=== PATIENT | male | born 1945 | race Caucasian/White ===

== ENCOUNTER → 2023-06-02 13:56 | Outpatient (REF) | payer MEDICARE, OTHER, SELFPAY ==
[2023-06-02 14:34] LABS: % Basophils 0.7 % (0-2); % Eosinophils 0.4 % (0-6); % Immature Granulocytes 0.7 % (0-0.5); % Lymphocytes 25.8 % (20.5-51.1); % Monocytes 10.5 % (1.7-9.3); % Neutrophils 61.9 % (42.2-75.2); Absolute Lymphocytes 1.5 10^3/uL (1.2-3.4); Absolute Monocytes 0.6 10^3/uL (0.1-0.6); Absolute Neutrophils 3.5 10^3/uL (1.4-6.5); Hematocrit 38.7 % (39.0-52.0); Hemoglobin 13.3 g/dL (13.0-18.0); Mean Corp Hgb Conc. 34.4 g/dL (33.0-37.0); Mean Corpuscular Hgb 32.7 pg (27.0-31.0); Mean Corpuscular Volume 95.1 fL (80.0-94.0); Mean Platelet Volume 9.9 fL (7.4-10.4); Nucleated Red Blood Cells % 0 % (-); Platelet Count 148 10^3/uL (130-400); Red Blood Cell Count 4.07 10^6/uL (4.70-6.10); Red Cell Dist. Width 12.9 % (11.5-14.5); White Blood Cell Count 5.7 10^3/uL (4.8-10.8)
[2023-06-02 17:08] LABS: ALT (SGPT) 23 U/L (0-50); AST (SGOT) 24 U/L (17-59); Albumin 4.4 g/dl (3.5-5.0); Alkaline Phosphatase 86 U/L (38-126); Blood Urea Nitrogen 23 mg/dl (9-20); Calcium 11.2 mg/dl (8.4-10.2); Carbon Dioxide 26 mmol/L (22-30); Chloride 107 mmol/L (98-107); Glucose 212 mg/dl (70-99); Iron 86 ug/dl (49-181); Potassium 4.2 mmol/L (3.5-5.1); Sodium 141 mmol/L (135-145); Total Bilirubin 0.9 mg/dl (0.2-1.3); Total Protein 7.3 g/dl (6.3-8.2); eGFR 55.88
[2023-06-02 17:18] LABS: Percent Saturation 24 % (20-50); Total Iron Binding Capacity 350 ug/dl (261-462)
[2023-06-02 17:57] LABS: CEA 2.71 ng/ml
[2023-06-02 22:21] LABS: Folate 7.9 ng/ml (2.76-20); Vitamin B12 729 pg/ml (239-931)
== END ==
LOC: REG 13:56
PROVIDERS: ATTENDING PHYSICIAN Internal Medicine Hematology & Oncology; FAMILY PHYSICIAN Family Medicine
DX: C18.2 Malignant neoplasm of ascending colon (principal); D50.0 Iron deficiency anemia secondary to blood loss (chronic); D51.9 Vitamin B12 deficiency anemia, unspecified
CPT/HCPCS: 36415; 80053; 82378; 82607; 82728; 82746; 83540; 83550; 85025

== ENCOUNTER → 2023-06-03 14:21 | Outpatient (REF) | payer MEDICARE, OTHER, SELFPAY | LOC: RAD 14:21 | PROVIDERS: ATTENDING PHYSICIAN Internal Medicine Hematology & Oncology; FAMILY PHYSICIAN Family Medicine | DX: C18.2 Malignant neoplasm of ascending colon (principal); D50.0 Iron deficiency anemia secondary to blood loss (chronic) | CPT/HCPCS: 71260; 74177; Q9967 ==

== ENCOUNTER → 2023-07-31 12:23 | Outpatient (REF) | payer MEDICARE, OTHER, SELFPAY ==
[2023-07-31 13:32] LABS: ALT (SGPT) 26 U/L (0-50); AST (SGOT) 27 U/L (17-59); Albumin 4.5 g/dl (3.5-5.0); Alkaline Phosphatase 73 U/L (38-126); Blood Urea Nitrogen 28 mg/dl (9-20); Calcium 10.9 mg/dl (8.4-10.2); Carbon Dioxide 24 mmol/L (22-30); Chloride 107 mmol/L (98-107); Glucose 136 mg/dl (70-99); HDL Cholesterol 37 mg/dl; LDL Cholesterol, Calculated 44 mg/dl; Potassium 4.8 mmol/L (3.5-5.1); Sodium 141 mmol/L (135-145); Total Bilirubin 1.1 mg/dl (0.2-1.3); Total Cholesterol 116 mg/dl (50-199); Total Protein 7.5 g/dl (6.3-8.2); Triglyceride 177 mg/dl (10-149); Very Low Density Lipoprotein 35 mg/dl (0-30); eGFR 51.13
[2023-07-31 14:00] LABS: Glycohemoglobin (HgbA1c) 7.1 % (4.0-5.6)
[2023-07-31 14:23] LABS: Microalbumin, Random Urine 2.9 mg/dl (0.6-1.7); Microalbumin/creatinine Ratio 11.7 mg/g
[2023-07-31 14:44] LABS: Folate 8.9 ng/ml (2.76-20); Vitamin B12 578 pg/ml (239-931)
[2023-08-01 12:34] LABS: Intact PTH 42.4 pg/ml (13.6-85.8)
== END ==
LOC: REG 12:23
PROVIDERS: ATTENDING PHYSICIAN Family Medicine
DX: E11.9 Type 2 diabetes mellitus without complications (principal); R53.83 Other fatigue; E78.00 Pure hypercholesterolemia, unspecified; R73.9 Hyperglycemia, unspecified; E78.9 Disorder of lipoprotein metabolism, unspecified; I10 Essential (primary) hypertension; R94.5 Abnormal results of liver function studies; E83.52 Hypercalcemia; Z79.899 Other long term (current) drug therapy
CPT/HCPCS: 36415; 80053; 80061; 82043; 82570; 82607; 82746; 83036; 83970

== ENCOUNTER → 2023-12-11 12:22 | Outpatient (REF) | payer MEDICARE, OTHER, SELFPAY | LOC: REG 12:22 | PROVIDERS: ATTENDING PHYSICIAN Internal Medicine Hematology & Oncology; FAMILY PHYSICIAN Family Medicine | DX: C18.2 Malignant neoplasm of ascending colon (principal); D50.0 Iron deficiency anemia secondary to blood loss (chronic) | CPT/HCPCS: 36415; 82378 ==

== ENCOUNTER → 2023-12-15 14:24 | Outpatient (REF) | payer MEDICARE, OTHER, SELFPAY | LOC: HWRAD 14:24 | PROVIDERS: ATTENDING PHYSICIAN Internal Medicine Hematology & Oncology; FAMILY PHYSICIAN Family Medicine | DX: C18.2 Malignant neoplasm of ascending colon (principal); D50.0 Iron deficiency anemia secondary to blood loss (chronic) | CPT/HCPCS: 71260; 74177; Q9967 ==

== ENCOUNTER → 2023-12-26 13:52 | Outpatient (REF) | payer MEDICARE, OTHER, SELFPAY ==
[2023-12-26 15:19] LABS: Iron 116 ug/dl (49-181)
[2023-12-26 15:29] LABS: % Basophils 0.7 % (0-2); % Eosinophils 0.4 % (0-6); % Immature Granulocytes 0.4 % (0-0.5); % Lymphocytes 27.4 % (20.5-51.1); % Monocytes 9.3 % (1.7-9.3); % Neutrophils 61.8 % (42.2-75.2); Absolute Lymphocytes 1.5 10^3/uL (1.2-3.4); Absolute Monocytes 0.5 10^3/uL (0.1-0.6); Absolute Neutrophils 3.4 10^3/uL (1.4-6.5); Hematocrit 42.2 % (39.0-52.0); Hemoglobin 14.7 g/dL (13.0-18.0); Mean Corp Hgb Conc. 34.8 g/dL (33.0-37.0); Mean Corpuscular Volume 91.9 fL (80.0-94.0); Mean Platelet Volume 10.6 fL (7.4-10.4); Nucleated Red Blood Cells % 0 % (-); Percent Saturation 34 % (20-50); Platelet Count 129 10^3/uL (130-400); Red Blood Cell Count 4.59 10^6/uL (4.70-6.10); Red Cell Dist. Width 12.9 % (11.5-14.5); Total Iron Binding Capacity 339 ug/dl (261-462); White Blood Cell Count 5.5 10^3/uL (4.8-10.8)
[2023-12-26 15:55] LABS: Ferritin 72.7 ng/ml (17.9-464.0)
[2023-12-26 16:26] LABS: Folate 8.6 ng/ml (2.76-20); Vitamin B12 491 pg/ml (239-931)
== END ==
LOC: REG 13:52
PROVIDERS: ATTENDING PHYSICIAN Internal Medicine Hematology & Oncology; FAMILY PHYSICIAN Family Medicine
DX: C18.2 Malignant neoplasm of ascending colon (principal); D50.0 Iron deficiency anemia secondary to blood loss (chronic); D51.9 Vitamin B12 deficiency anemia, unspecified
CPT/HCPCS: 36415; 82607; 82728; 82746; 83540; 83550; 85025

== ENCOUNTER → 2024-01-07 06:23 | Day surgery (SDC) | payer MEDICARE, OTHER, SELFPAY ==
[2024-01-07 07:38] LABS: Glucose - Point of Care 250 mg/dl (70-99)
== END ==
LOC: GI 06:23
PROVIDERS: ATTENDING PHYSICIAN Surgery
PROC: 0DBL8ZX Excision of Transverse Colon, Via Natural or Artificial Opening Endoscopic, Diagnostic (ICD-10-PCS; 2024-01-07)
PROC: 0DBN8ZX Excision of Sigmoid Colon, Via Natural or Artificial Opening Endoscopic, Diagnostic (ICD-10-PCS; 2024-01-07)
DX: Z12.11 Encounter for screening for malignant neoplasm of colon (principal); Z85.038 Personal history of other malignant neoplasm of large intestine; D12.7 Benign neoplasm of rectosigmoid junction; K57.30 Diverticulosis of large intestine without perforation or abscess without bleeding; D12.3 Benign neoplasm of transverse colon; K64.9 Unspecified hemorrhoids
CPT/HCPCS: 45380; 88305; 82962

== ENCOUNTER 2024-04-25 17:23 | Inpatient (IN) | payer MEDICARE, OTHER, SELFPAY ==
--- NOTE | 2024-04-25 15:21 | CON.NEURO ---
Consultation
Order
Date of Consultation: 04/25/24
Requesting Provider: Laura Payne.
Reason for Consult: Stroke Alert
Prehospital notification at 15:07
Neurology Consultation Note.
HPI: This is an 78-year-old man who presented to [facility] on 04/25/2024 with encephalopathy.
According to patient's daughter Mr. Duran was found sitting on the floor, confused around 2:50 PM today.
According to EMS the patient had transient facial weakness and was able to follow requests.
According to patient's daughter the patient seems to be lethargic since yesterday and cancel his plans to meet with friend August for today. As per his friend he sounded 'drugged around 11:00 in the morning today
VS by EMS-HR 38-43 bpm, SBP in 170s mmHg. The patient's blood glucose was 120 mg/dL.
ER VS: 164/78, 46, T-pending.
PDMP:none
Labs: Glucose�166, normal sodium, creatinine 1.3, WBCs�12.7, MCV�96.2.
CT head wo contrast
CTA head/neck�severe bilateral ICA stenosis, right vert occlusion
PMH: Colon cancer, CAD, ICM, HTN, DLP, DM, noncompliance, nephrolithiasis,
PSH: Colectomy, PTCI, appendectomy,
SH: Lives with daughter, non-smoker
FH: Noncontributory
All: Iodine
ROS: Positive for chronic diarrhea, unwitnessed fall
General: Well developed. In no acute distress.
Cardio: Regular rate . Extremities are without cyanosis or edema.
Right dorsal hand and left forehead abrasion.
Neuro:
Mental Status: Alert, attends right more than left. Does not follow requests. Nonverbal.
Cranial Nerves: Orthophoric primary gaze. Does not cross midline to the left. No blink to threat bilaterally. No clear facial weakness.
Motor: Moves upper and lower extremities antigravity (left arm greater than right) lower EXTR symmetrically.
Reflexes: positive for bilateral grasp
Sensory: Grimaces to noxious stimuli
Coordination: No tremors myoclonic
Gait: deferred
Assessment and Plan:
I. Acute encephalopathy. Differential diagnosis includes vascular versus ictal/postictal vs infectious versus metabolic. Not a candidate for IV TNK due to unclear timing of presenting symptoms onset.
II. Severe bilateral ICA stenosis
III. Status post unwitnessed fall
IV. Mediastinal lymphadenopathy.
-Avoid cerebral hypoperfusion in view of bilateral ICA stenosis
-Atropine as needed
-CT C spine
-Keppra load
-Telemetry monitoring
-please check CK, UA, urine culture, urine tox, TFTs
-Brain MRI without darrel
-Routine EEG
-Cardiology consult
-Case was discussed with patient's daughter
I personally reviewed all radiology and labs along with past medical records pertinent to current medical problems. Total time spent in patient care is 60 minutes.
Thank you for allowing us to participate in the care of this patient. We will continue to follow. Please do not hesitate to contact us with any questions or concerns.
Subjective/Objective
Subjective Data
Date of Service: April 25, 2024
Objective Data
Patient Allergies
shellfish derived Allergy (Verified 04/25/24 15:20)
Itching
shrimp Allergy (Verified 04/25/24 15:20)
Itching
Medications
-
Home Medications
�Medication �Instructions �Recorded
atorvastatin 40 mg tablet 40 mg PO DAILY High cholesterol 07/12/20
metformin 500 mg tablet 1,000 mg PO BID@0800,1700 Diabetes 07/12/20
aspirin 81 mg tablet,delayed 81 mg PO DAILY Blood clot 12/17/21
release prevention/tx
cholecalciferol (vitamin D3) 25 25 mcg PO DAILY Supplement 12/17/21
mcg (1,000 unit) tablet
lisinopril 20 mg tablet 20 mg PO DAILY #90 tabs 12/24/21
sitagliptin phosphate 25 mg tablet 25 mg PO DAILY 01/22/22
(Januvia)
cephalexin 500 mg capsule 500 mg PO BID #20 caps 03/15/22
docusate sodium 100 mg capsule 100 mg PO DAILY #30 caps 03/15/22
(Colace)
Home Medications
-
Home Medications
atorvastatin 40 mg tablet 40 mg PO DAILY High cholesterol 07/12/20
metformin 500 mg tablet 1,000 mg PO BID@0800,1700 Diabetes 07/12/20
aspirin 81 mg tablet,delayed release 81 mg PO DAILY Blood clot prevention/tx 12/17/21
cholecalciferol (vitamin D3) 25 mcg (1,000 unit) tablet 25 mcg PO DAILY Supplement 12/17/21
lisinopril 20 mg tablet 20 mg PO DAILY #90 tabs 12/24/21
docusate sodium 100 mg capsule (Colace) 100 mg PO DAILY #30 caps 03/15/22
empagliflozin 10 mg tablet (Jardiance) 10 mg PO DAILY 04/25/24
--- NOTE | 2024-04-25 15:22 | PHANOTE ---
med rec note- family does not patient meds with them, patient does not have ecw or pcp with ecw
[2024-04-25 15:35] VITALS: BMI 23.9
--- NOTE | 2024-04-25 15:36 | EDRN ---
Patient brought in by EMS as prehospital stroke alert. Directly to CT via EMS stretcher for head and angio. Neurologist at the bedside to evaluate the patient. Unable to follow commands. Patient trying to get off the CT table stating 'help me' while
trying to lift head off table.
[2024-04-25 15:45] VITALS: BP 164/78
[2024-04-25 15:53] LABS: % Basophils 0.5 % (0-2); % Eosinophils 0.4 % (0-6); % Immature Granulocytes 0.3 % (0-0.5); % Lymphocytes 32.3 % (20.5-51.1); % Neutrophils 56.5 % (42.2-75.2); Absolute Basophils 0.1 10^3/uL (0-0.2); Absolute Eosinophils 0.1 10^3/uL (0-0.7); Absolute Lymphocytes 4.1 10^3/uL (1.2-3.4); Absolute Monocytes 1.3 10^3/uL (0.1-0.6); Absolute Neutrophils 7.2 10^3/uL (1.4-6.5); Hemoglobin 14.1 g/dL (13.0-18.0); Mean Corp Hgb Conc. 34.4 g/dL (33.0-37.0); Mean Corpuscular Hgb 33.1 pg (27.0-31.0); Mean Corpuscular Volume 96.2 fL (80.0-94.0); Mean Platelet Volume 9.7 fL (7.4-10.4); Nucleated Red Blood Cells % 0 % (-); Platelet Count 139 10^3/uL (130-400); Red Blood Cell Count 4.26 10^6/uL (4.70-6.10); Red Cell Dist. Width 13.8 % (11.5-14.5); White Blood Cell Count 12.7 10^3/uL (4.8-10.8)
[2024-04-25 16:02] VITALS: BP 154/70
[2024-04-25 16:04] LABS: Blood Urea Nitrogen 19 mg/dl (9-20); Calcium 9.9 mg/dl (8.4-10.2); Carbon Dioxide 20 mmol/L (22-30); Chloride 107 mmol/L (98-107); Estimated Creatinine Clearance 48 ml/min; Glucose 166 mg/dl (70-99); Potassium 3.5 mmol/L (3.5-5.1); Sodium 139 mmol/L (135-145); eGFR 55.53
--- NOTE | 2024-04-25 16:05 | EDRN ---
Family at bedside unsure when his initial symptoms started. His Apple Watch notified him several times today about a low or irregular heart rate since about 0930 this morning. Also going through his communications he spoke with a family member about
the same time and they thought he sounded a little 'groggy.'
Dr. Robertson updated the family that the patient will be going to the petroleum laboratory technician.
[2024-04-25 16:08] LABS: INR 1.25
[2024-04-25 16:09] LABS: APTT 43.7 Sec (23.4-35.0)
[2024-04-25 16:16] LABS: Troponin I 0.018 ng/ml
[2024-04-25] MEDS: KEPPRA 1000 MG IV (16:29)
[2024-04-25 16:30] VITALS: BP 127/90
--- NOTE | 2024-04-25 16:33 | HPS.HSE ---
Family Physician
-
Family Physician: Onur Penaloza
Chief Complaint
-
change in mental status
History of Present Illness
Patient is [id number] male with past medical history significant for essential hypertension, hyperlipidemia, CAD, DM II, hx CO and hx colon cancer with resection who presented to [facility] ED for evaluation of change in mental status.
Patient daughter present and assisted with HPI. Patient was found sitting on the floor with facial drooping and slurring of words around 1445 this afternoon. She states she is unsure when last time he was at baseline. She noted last night his door
was ajar which is not generally like him, but she did not look to see if anything appeared off. She states this morning he called to cancel plans with his friend. The friend notified her that she felt patient was lethargic and was slurring words
like he was drunk when they spoke around 1100. Daughter states she had a few word interaction at approximately 1300 but did not notice anything off but does state it was super brief and not sure she would have noticed any change. EMS called and
transported patient where he was found to be in complete heart block. Daughter reports there has been no recent illness or symptoms, she reports he has had episodes of diarrhea but not abnormal post his colon resection in 2021.
Medical History
Past Medical History
Past Medical History: Reports Other
Additional Past Medical History:
essential hypertension
hyperlipidemia
CAD
DM II
hx CO
hx colon cancer
Past Surgical History: Reports Other
Additional Past Surgical History:
bowel resection
cataract extraction
melanoma of skin
cardiac stent
appendectomy
Social History
Tobacco: Non-smoker
Alcohol: None
Drug: None
Living: With Family
Employment: Retired
Family History
Family History: Not pertinent
Allergies / Home Medications
Allergies reflects when Allergies were last updated in [facility].
Home Medications with original date entered in [facility]
Allergy/Medication List:
Allergies
Allergy/AdvReac Type Severity Reaction Status Date / Time
shellfish derived Allergy Itching Verified 04/25/24 15:20
shrimp Allergy Itching Verified 04/25/24 15:20
Home Medications
atorvastatin 40 mg tablet 40 mg PO DAILY High cholesterol 07/12/20
metformin 500 mg tablet 1,000 mg PO BID@0800,1700 Diabetes 07/12/20
aspirin 81 mg tablet,delayed release 81 mg PO DAILY Blood clot prevention/tx 12/17/21
cholecalciferol (vitamin D3) 25 mcg (1,000 unit) tablet 25 mcg PO DAILY Supplement 12/17/21
lisinopril 20 mg tablet 20 mg PO DAILY #90 tabs 12/24/21
docusate sodium 100 mg capsule (Colace) 100 mg PO DAILY #30 caps 03/15/22
empagliflozin 10 mg tablet (Jardiance) 10 mg PO DAILY 04/25/24
Review of Systems
-
Unable to obtain full review of systems at this time due to: Other (change in mental status, does not answer questioning)
Physical Exam
Vital Signs
Vital Signs
Pulse Resp BP Pulse Ox
46 17 164/78 93
04/25/24 15:47 04/25/24 15:47 04/25/24 15:45 04/25/24 15:47
Physical Exam
General: Well Developed, Well Nourished and Slurred Speech
HEENT: NormoCephalic, Moist mucous membranes, Atraumatic, [place] Conjunctivae, Nose Appears Normal and Ears Appear Normal
Respiratory: Clear
Cardiac: S1/S2, Regular Rhythm and Bradycardia; No Murmur, Rub or Gallop
Breast: Deferred by me
GI: Soft, Non Tender, Non Distended and Normal Bowel Sounds; No Organomegaly
Rectal: Deferred by Provider
Genito-urinary: Deferred by me
Musculoskeletal: No Clubbing, No Cyanosis and No Edema
Skin: Warm and IV/Catheter Site; No Rash
Neuro: Awake, Alert, Nonfocal/grossly intact and Cranial Nerves Intact
Laboratory Results
-
04/25/24 15:43
04/25/24 15:43
Laboratory Results
PT 16.0 Sec (11.4-14.6) H 04/25/24 15:43
INR 1.25 04/25/24 15:43
APTT 43.7 Sec (23.4-35.0) H 04/25/24 15:43
Troponin I 0.018 ng/ml 04/25/24 15:43
Data Reviewed
-
CT Scan: Report Reviewed by me (Head CT and Head/NECK CTA)
Medical Tests (Nuc Med, Echo, EKG etc): Report Reviewed by me (EKG: Critical Test Result: AV Block SINUS TACHYCARDIA WITH COMPLETE HEART BLOCK AND WIDE QRS RHYTHM RIGHT BUNDLE BRANCH BLOCK INFERIOR INFARCT , AGE UNDETERMINED ABNORMAL ECG)
Lab Data: Labs Reviewed by me (WBC 12.7)
Impression/Plan
-
IMPRESSION/PLAN:
#change in mental status
#acute encephalopathy
CVA vs. postictal vs. infectious vs. metabolic
Head CT: 1. No CT evidence for acute intracranial hemorrhage or transcortical infarct.
2. Moderate white matter leukoaraiosis in the frontal and parietal lobes.
3. Mild to moderate diffuse cerebral and cerebellar volume loss.
Neck CTA: 1. COMPLETE OCCLUSION of the RIGHT VERTEBRAL ARTERY at the origin.
2. SEVERE STENOSES (greater than 70% diameter) in BOTH PROXIMAL INTERNAL CAROTID ARTERIES secondary to severe calcific atherosclerotic plaque.
3. Patent left vertebral artery.
4. Moderate mediastinal lymphadenopathy which has increased since 12/15/2023. Diagnostic possibilities are (1) reactive lymphadenopathy or (2) fred metastatic disease.
5. Mild acute interstitial and alveolar cardiogenic pulmonary edema.
6. Small bilateral pleural effusions.
7. Severe discogenic degenerative disease and facet joint arthrosis in the cervical spine.
Head CTA: 1. Severe calcific atherosclerotic plaque in both intracranial internal carotid arteries causing greater than 70% diameter stenosis in the cavernous and clinoid segments of the left ICA and 50-70% diameter stenosis in
the clinoid segment of the right ICA.
2. 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
3. No CTA evidence for middle cerebral artery stenosis or occlusion.
4. Retrograde blood flow into the right intracranial vertebral artery.
5. No CTA evidence for stenosis or occlusion in the left vertebral, basilar, or posterior cerebral arteries.
6. Moderate white matter leukoaraiosis.
7. Mild to moderate diffuse cerebral and cerebellar volume loss.
- Admit to IVU
- Consult Neurology
#complete heart block
EKG: Critical Test Result: AV Block
SINUS TACHYCARDIA WITH COMPLETE HEART BLOCK AND WIDE QRS RHYTHM
RIGHT BUNDLE BRANCH BLOCK
INFERIOR INFARCT , AGE UNDETERMINED
ABNORMAL ECG
- Admit to IVU
- Consult Cardiology
- plan for laboratory chemist for pacer
- ECHO for morning
#essential hypertension
- monitor VS
- hold home medications
#hyperlipidemia
#CAD
- hold home medication
#DM II
- AccuCheck AC & HS
- SSI
- hold metformin
#hx CO
s/p stent placement
#hx colon cancer
s/p bowel resection (12/2021)
Code status: full code
DVT prophylaxis: SCDs
--- NOTE | 2024-04-25 16:36 | ED.CVA ---
Addendum entered and electronically signed by Vicnete Robertson MD 04/25/24 16:58:
CT angio was forwarded to neurology and they are aware of the findings
Original Note:
History of Present Illness
General
Chief Complaint: CVA/TIA Symptoms
Source: family and ambulance crew
Exam Limitations: clinical condition
Time Seen by Provider: 04/25/24 15:13
Onset of Stroke Symptoms
Onset of symptoms known: No
Date of onset of symptoms: 04/25/24
Time pt last seen normal is known: No
History of Present Illness
History of Present Illness:
78-year-old male lives with his daughter. Initially the report was that he was fine at 1 PM and then at 2:45 PM, he was noted to be by his chair slumped over with difficulty speaking. However on further questioning the daughter's discussion with
him at 1 PM was very brief with only a few answered questions. In addition other family members talk to him at 9:30 in the morning and he seemed off at that time. Finally his watch showed a low heart rate starting at 9:30 in the morning. No
witnessed seizure. No other history.
Past History
Past History
ED Past Medical History: CAD, Cancer, HTN, Hypercholesterolemia and Other (Sciatica)
ED Past Surgical History: Appendectomy, Cardiac (PTCA with stent) and Other (Hemorrhoidectomy)
Social History
Tobacco: Non-smoker
Alcohol: None
Drug: None
Personal:
Living: with family
Employment: Employed
Family History
Family History: Other (Noncontributory)
Review of Systems
Review of Systems
Unable to obtain full review of systems at this time due to: due to acuity
All Other Systems: Not applicable
Phy Exam
Physical Exam
Physical Exam:
GENERAL: Alert. Not following commands. Abrasion to the left forehead.
EYE: Orbits normal.
NECK: Supple, nontender
ENT: Pharynx without erythema
CARDIAC: Bradycardic and regular
LUNGS: Clear breath sounds,normal
ABDOMEN: Soft, without focal tenderness or distention
NEUROLOGICAL: Alert. Aphasic. Questionable mild left facial droop although not obvious at all times. Nonfocal extremities although not following commands. Possibly right eye gaze preference.
SKIN: Warm and dry, small abrasion to the arm
MUSCULOSKELETAL: No edema,no deformity.Good color
PSYCH: Anxious
Course
Orders/Labs/Results
Orders:
Orders
04/25/24 15:11
CT HEAD STROKE ALERT W/o Cont Urgent
Comment:
Reason For Exam: facial droop
04/25/24 15:13
Electrocardiogram (*1) Stat
Reason for Study: Other
Other Reason for Exam: neuro symptoms
CT HEAD/NECK ANG STROKE ALERT Urgent
Comment:
Reason For Exam: Left-sided weakness/aphasia
Cardiac Monitoring- Treatment ONCE
EKG- Treatment ONCE
Pulse Ox/cont/shift [RESP] Stat
Quantity: 1
04/25/24 15:43
Alcohol Urgent
Basic Metabolic Panel Urgent
Complete Blood Count/With Diff Urgent
Creatine Phosphokinase Urgent
Comment: ADD ON
Magnesium Urgent
Comment: ADD ON
PTT Urgent
Prothrombin Time Urgent
TSH Reflex To Free T4 Urgent
Comment: ADD ON
Troponin I Urgent
04/25/24 16:22
CT Cervical Spine W/o Iv Contr Urgent
Comment:
Reason For Exam: s/p fall
Levetiracetam Injectable [Keppra] 1,000 mg IV NOW STA
04/25/24 16:23
EEG Routine Routine
Reason for Exam: encephalopathy
Urinalysis Reflex To Culture Routine
Urine Drug Abuse Screen Routine
MRI Brain [MR Brain Without Contrast] Routine
Comment:
Reason For Exam: encephalopathy
OK for patient to be off Cardiac Monitoring for MRI: No
Recent pill cam endoscopy?: No
04/25/24 16:25
Add On- LAB Urgent
Tests Added?: ETOH, Total CK, TSH reflex to free
04/25/24 16:26
Add On- LAB Urgent
Tests Added?: magnesium
04/25/24 16:30
Heparin 1000 Units/500 ml [Heparin] 1,000 units in 500 ml .ROUTE .STK-MED
Lidocaine HCl/Pf [Xylocaine-Mpf 1% Vial] 100 mg .ROUTE .STK-MED ONE
04/25/24 16:31
Heparin Sodium,Porcine/Ns/Pf [Heparin 2000 Units/1000 ml] 2,000 unit in 1,000 ml .ROUTE .STK-MED
04/25/24 16:32
Fentanyl Citrate/Pf [Sublimaze] 100 mcg .ROUTE .STK-MED ONE
Midazolam HCl [Versed] 2 mg .ROUTE .STK-MED ONE
04/25/24 17:00
Aspirin Low Dose EC [Aspir Low (Enteric Coated)] 81 mg PO DAILY
04/25/24 20:00
Levetiracetam Injectable [Keppra] 500 mg IV Q12
Abnormal Lab Results
04/25/24
15:43
WBC 12.7 H 10^3/uL
(4.8-10.8)
RBC 4.26 L 10^6/uL
(4.70-6.10)
MCV 96.2 H fL
(80.0-94.0)
MCH 33.1 H pg
(27.0-31.0)
Absolute Neuts (auto) 7.2 H 10^3/uL
(1.4-6.5)
Absolute Lymphs (auto) 4.1 H 10^3/uL
(1.2-3.4)
Absolute Monos (auto) 1.3 H 10^3/uL
(0.1-0.6)
Monocytes % 10.0 H %
(1.7-9.3)
PT 16.0 H Sec
(11.4-14.6)
APTT 43.7 H Sec
(23.4-35.0)
Carbon Dioxide 20 L mmol/L
(22-30)
Glucose 166 H mg/dl
(70-99)
04/25/24 15:43
04/25/24 15:43
Vital Signs
Initial and Last Documented VS:
Initial Vital Signs
Pulse Ox
93
04/25/24 15:10
Last Documented Vital Signs
Pulse Resp BP Pulse Ox
46 17 164/78 93
04/25/24 15:47 04/25/24 15:47 04/25/24 15:45 04/25/24 15:47
MDM/Problems Addressed
Differential Diagnosis Includes:
Patient initially presented as a stroke alert. Grossly nonfocal except for a questionable right gaze preference and questionable left facial droop. Which of course is not consistent. However seemed encephalopathic. Also signs of minor head
injury. In addition patient was in a third-degree heart block that likely started midmorning. This was noted based on his bradycardic rhythm of his Apple Watch. Prehospital stroke alert was called. Neurology was involved from the beginning. We
do not feel he is a thrombolytic candidate given the uncertainty of the timing of his symptoms. In addition this is not a clear-cut CVA at this time. It is possible he is encephalopathic, postictal etc. Finally his third-degree heart block was
addressed by immediately calling cardiology. There are been from the get go. Invasive cardiology is taking him up to the [facility] for pacemaker. Hospitalist also involved.
*Pulse Oximetry
Patient hypoxic: no
*EKG
Interpreted by ED Provider?: Yes
Interpretation: abnormal
Comparison EKG: changes noted
Heart Rate: 49
Rate: bradycardiac
Rhythm: other (Third-degree heart block)
[place]: normal axis
Interval: third degree heart block
QRS Pattern: normal QRS
Ischemia: non-specific ST changes
*Social Services Interpretation
Rate: bradycardiac
Interpretation: abnormal
Heart Rate: 47
Rhythm: other (Third-degree heart block)
*Critical Care Note
Total Time (30-74mins, 75-104mins- exclusive of procedures): 45
Data Reviewed
Review of Other/Old Records Reveals: Labs, Records and Testing
Source: patient, family and ambulance crew
ED Attending Note
-
Portions of this chart may have been created with voice recognition software.� Occasional wrong word or��sound alike� substitutions may have occurred due to the inherent limitations of voice recognition software.
Discharge Plan
Departure
Patient Disposition: Admit
Date of Disposition: 04/25/24
Time of Disposition: 16:13
Presentation/result/management discussed w/ accepting MD/DO: Cardiology/neurology
Discharge Problem:
Third-degree heart block, Encephalopathy/possible CVA, Minor head injury
Prescriptions:
No Action
atorvastatin 40 MG tablet
40 mg PO DAILY
metformin 500 MG tablet
1,000 mg PO BID@0800,1700
cholecalciferol (vitamin D3) 25 mcg (1,000 unit) Tablet
25 mcg PO DAILY
aspirin 81 MG tablet,delayed release (DR/EC)
81 mg PO DAILY
lisinopril 20 mg Tablet
20 mg PO DAILY Qty: 90 0RF
docusate sodium [Colace] 100 mg capsule
100 mg PO DAILY Qty: 30 0RF
Jardiance 10 mg Tablet
10 mg PO DAILY
Referrals:
Onur Penaloza MD [Family Provider] -
Interventions
Interventions:
*General Assessment Last Done: 04/25/24 15:10
*ED COVID-19 Vaccine History Last Done: 04/25/24 16:00
ED- Pulmonary Assessment Last Done: 04/25/24 15:10
ED- Neurological Assessment Last Done: 04/25/24 15:10
ED- Cardiac Assessment Last Done: 04/25/24 15:10
ED Swallowing Screen Last Done: 04/25/24 15:10
Discharge Date and Time
Print Language: HUNGARIAN
--- NOTE | 2024-04-25 16:43 | ITS.CL.PN ---
Director Sales And Marketing - Procedure Note
Procedure
Procedure Note:
TRANSVENOUS PACEMAKER REPORT
�
Date of Procedure: April 25, 2024
�
Referring: [facility] emergency department
�
PROCEDURES:
1. Placement of a temporary transvenous pacemaker via right common femoral vein
2. Ultrasound-guided access
�
INDICATION: High-grade AV block with altered mental status. Per emergency room, patient presented as a stroke alert after found to have slurred speech at home and altered mental status. CT head and neck were performed. CTA shows severe bilateral
ICA stenosis and an occluded right vertebral artery. Neurology evaluated the patient in the emergency room and patient was thought to be outside of the tPA window given unclarity of when symptoms started. Given ongoing altered mental status which
was thought to be possibly symptomatic from his AV block, we were asked to place a temporary transvenous pacemaker. Patient has significant altered mental status and is not consentable. He is impulsive, not directable and flailing around and
therefore decision was made to go through right common femoral vein rather than right IJ to minimize risk for dislodgment of the temporary pacemaker.
�
ACCESS: Right common femoral vein, 6 Indonesian sheath, under ultrasound guidance
Ultrasound was utilized for vascular access. The RCFV vein was visualized under ultrasound, and the vessel was patent. An image was stored permanently in the patient's medical record. Under direct ultrasound guidance, a 6 Indonesian sheath was
inserted into the vein using a micropuncture kit through a modified Seldinger technique.
�
PROCEDURE DETAIL: Under fluoroscopy guidance, we successfully advanced a balloon-tipped temporary transvenous pacemaker into the RV. We subsequently checked thresholds to confirm capture. Threshold was at 1 mA. Once capture was confirmed, the
temporary transvenous pacemaker was set to a heart rate of 60 bpm, threshold of 20 mA. Given patient continued to have significant impulsiveness and was not redirectable with constant movement of his upper and lower extremities, we ended up having
to reposition the wire multiple times with capture confirmed immediately however as soon as we would tape it and the patient would not move we would intermittently lose capture. I discussed with my rounding colleague, Dr. Alan Cline who is also an
mechanical design technician here and given potential risk for RV perforation with ongoing manipulation in the setting of stable heart rates and blood pressures, we decided to secure the temporary wire in place.
�
SEDATION: 16 minutes of procedural sedation was utilized. An independent clinical specialist medical device was present to assist with and help manage the patient's level of consciousness and physiologic status.
RADIATION SUMMARY: Fluoro Time (min): 3.5, Dose (mGy): 97.23, DAP (Gy.cm2) : 12.27
�
CONCLUSIONS
1. Successful placement of a temporary transvenous pacemaker via right common femoral vein
�
RECOMMENDATIONS
1. Chest x-ray post temporary transvenous pacemaker to assess placement and rule out pneumothorax.
2. Plan for likely permanent pacemaker on Friday, April 26, 2024.
Angelique Mcguire MD, [facility], [facility]
�
Copy to: Bronson Nunez MD
[2024-04-25 17:03] LABS: Creatine Phosphokinase 69 U/L (55-170); Magnesium 1.6 mg/dl (1.6-2.3)
[2024-04-25 17:04] LABS: Alcohol None Detected
--- NOTE | 2024-04-25 17:33 | CON.CAR ---
Consultation
Consultation Request
Date/Time Consultation Requested: 04/25/2024 1630
Date/Time Consultation Performed: 04/25/2024 1730
Requesting Provider: Marcelo
Performing Provider: Trever
Reason for Consultation: Complete Heart Block, confusion
Medical History
-
Chief Complaint: Confusion, CHB
History of Present Illness:
Patient is an 78-year-old male with a past medical history significant for diabetes mellitus type 2, mixed hyperlipidemia, ischemic cardiomyopathy with recovered EF (55% March 2021), hypertension, prior NE with stenting July 2015 who presented to
[facility] due to slurred speech, weakness, altered mental status. Patient had to be in good health this week however patient had been last known well 04/24/2024. Patient's daughter provides history states that she noted that at 1 PM
today he seemed off with only few questions answered however in further discussion with other family members, he had been off at 9:30 AM and had also canceled previously scheduled plans. Additionally, he was reported to have low heart rate
notifications by [employer] earlier this morning. Unclear at this time if these are new or old for the patient. In the afternoon, patient was noted to have slumped down in the chair and have difficulty speaking prompting evaluation in the
emergency department. Out of concern for stroke, neurology was consulted and noted to have acute encephalopathy with severe bilateral ICA stenosis and no evidence of acute CVA by CT scan. Initial EKG by EMS showed complete heart block (sinus
tachycardia with ventricular escape) which patient has no prior history of. In discussion with daughter, she reported that he had complained of some diarrhea recently which is not uncommon for him given his prior cancer. She denied that he had
reported any chest pain, shortness of breath, lightheadedness, dizziness, palpitations, or weakness. She noted that he had attended his spin classes earlier this week as well. Patient is a non-smoker, no alcohol, no illicits. Due to concern of
complete heart block causing hypoperfusion versus playing a role in encephalopathy, patient underwent TVP placement with interventional cardiology, Dr. Mcguire. Patient ventricularly paced 80 bpm.
Past Medical History
Past Medical History: Other (See HPI)
Past Surgical History: Other (Appendectomy, cardiac stenting, bowel resection 12/2021)
Social History
Tobacco: Non-Smoker
Alcohol: None
Drug: None
Living: With Family
Family History
Family History: Reviewed & Not Pertinent
Allergies / Home Medications
Allergy/AdvReac Type Severity Reaction Status Date / Time
shellfish derived Allergy Itching Verified 04/25/24 15:20
shrimp Allergy Itching Verified 04/25/24 15:20
�Medication �Instructions �Recorded �Confirmed �Type
atorvastatin 40 mg tablet 40 mg PO DAILY High cholesterol 07/12/20 01/22/22 History
metformin 500 mg tablet 1,000 mg PO BID@0800,1700 Diabetes 07/12/20 01/22/22 History
aspirin 81 mg tablet,delayed 81 mg PO DAILY Blood clot 12/17/21 01/22/22 History
release prevention/tx
cholecalciferol (vitamin D3) 25 25 mcg PO DAILY Supplement 12/17/21 01/22/22 History
mcg (1,000 unit) tablet
lisinopril 20 mg tablet 20 mg PO DAILY #90 tabs 12/24/21 01/22/22 Rx
docusate sodium 100 mg capsule 100 mg PO DAILY #30 caps 03/15/22 Rx
(Colace)
empagliflozin 10 mg tablet 10 mg PO DAILY 04/25/24 History
(Jardiance)
Review of Systems
-
Unable to obtain full review of systems at this time due to: Other (Current medical condition)
History Source: Family
Constitutional: No Symptoms
EENT: No Symptoms
Respiratory: No Symptoms
Cardiac: No Symptoms
Abdomen/GI: Diarrhea
: No Symptoms
Musculoskeletal: No Symptoms
Skin: No Symptoms
Neurological: Weakness and Other (Speech difficulty)
Endocrine: No Symptoms
Hematologic/Lymphatic: No Symptoms
Physical Exam
Vital Signs
Pulse Resp BP Pulse Ox
61 14 127/90 96
04/25/24 16:45 04/25/24 16:45 04/25/24 16:30 04/25/24 16:15
Lab Results
04/25/24 15:43
04/25/24 15:43
Troponin I 0.018 ng/ml 04/25/24 15:43
physical exam:
GENERAL: no acute distress, confused
EYE: sclera anicteric
NECK: Supple, no JVD
ENT: normal nose, moist mucosal membranes
CARDIAC: Regular rate and rhythm, +S1/S2, no murmur, rubs, or gallops
CHEST/PULMONARY: Normal effort, clear breath sounds
ABDOMEN: Soft, without focal tenderness or distention
NEUROLOGICAL: Follows some commands, alert, not oriented
SKIN: Warm and dry, no rash
PSYCH: Confused, mild agitation
Impression / Plan
-
PCP: Onur Penaloza MD
Cardiology: Bronson Nunez MD
Impression:
Acute encephalopathy, unclear etiology at this time, concern for CVA
Complete heart block
CAD status post PCI 2015
Ischemic cardiomyopathy with recovered EF
Hypertension
Dyslipidemia
Diabetes mellitus type 2
Colon cancer s/p resection 12/2021
Cath 07/2015: Promus stent of RCA. There was moderate disease of LAD and diagonal and ejection fraction was 45%.
Echo 07/04/2015: EF 45% with mild inferior hypokinesis.
Echo 03/09/2021: EF 55%, no regional wall motion abnormality, mild MR, mild TR, trivial pericardial effusion
Plan:
� Patient is status post right femoral vein TVP for complete heart block; set VVI 80; timing of permanent device pending further evaluation regarding encephalopathy
� Appreciate input by neurology/primary service regarding acute encephalopathy; lab work pending regarding encephalopathic workup; patient not deemed a TNK candidate per neurology
� Check Lyme disease panel
� Check 2D echocardiogram
� Monitor on telemetry
� Unclear if ACS at this time however this is unlikely with no reported sherri syncope and no reported chest pain, shortness of breath or anginal symptoms leading to today's altered mental status; initial troponin 0.018
Data Reviewed
-
EKG: Tracing Personally Visualized and interpreted
Radiology: Report Reviewed by me
CT Scan: Report Reviewed by me
Medical Tests (Nuc Med, Echo etc): Report Reviewed by me
Labs: Labs Reviewed by me
Old Records: Reviewed
[2024-04-25 17:45] LABS: TSH Reflex To Free T4 3.96 uIU/ml (0.47-4.68)
--- NOTE | 2024-04-25 18:14 | PTCARENOTE ---
Received pt from fish hatchery laborer team. Pt agitated and confused. Thrashing in bed. Pt in 4 Pt soft limb restraints upon arrival. 100% V paced on monitor. Via Temporary pacemaker wire via the RT femoral vein. Set to VVI 80/20. NIH scale completed.
PT with LT sided neglect, not moving LT arm to command , but able to move Lt leg w/o issue. Pt not following instructions and attempting to move RT leg despite several attempts at redirection. LT sided facial droop also present. Nd deb deviated
to right. Other facial features symetrical. Pupils equal and reactive. Pt able to answer name but not year and stated it was 1953. Room air 93%. Abdomen soft and non tender. PUlses palpable. Knee immobilizer placed to RT leg to prevent damage
to RT groin sheath. Family updated and at bedside.
--- NOTE | 2024-04-25 19:00 | PTCARENOTE ---
Addendum entered by Davon Colón RN 04/26/24 04:59:
1899 - of note patient with what appears to be large L sided inguinal hernia, when coughing/breathing hernia ballooning up and down. R sided groin sheath stable, no hematoma.
Original Note:
assumed care of patient @ 1900. recieved pt laying in bed, AOx1. Can state name, unable to answer any other questions. pupils 2 and sluggish. L sided facial droop and L sided weakness. NIH 14. pt confused/restless, restrained with 4 point
restraints. V paced through temp pacer in R groin set to VVI 80, 20, 5. Lungs with rhonci and increased RR rate in the 30s-40s. Placed on 2L, satting 90s. pt incont of urine. cleaned up, #25 condom cath placed. R groin sheath intact no hematoma
noted. PIV x2 R side patent. care ongoing
--- NOTE | 2024-04-25 19:43 | W.PN.UPDATE ---
Update Note
Progress Note Update
This is an addendum to the H&P written by Eileen Jo on 04/25/2024. Patient seen and examined independently with LANDING WORKER.
78-year-old male past medical history of colon cancer, melanoma, hypertension, CAD status post stent, hyperlipidemia, type 2 diabetes, presenting with left facial droop and difficulty speaking starting at 2:45 PM. He also was noted to have
bradycardia on his Apple Watch starting in the morning. He was having diarrhea over the past few days.
On examination he was noted to have aphasia, right-sided gaze preference and questionable left facial droop.
He was found to be in third-degree heart block heart rate in the 40s.
EKG showed complete heart block with heart rate of 49. Right bundle branch block.
Labs show leukocytosis. CT head shows no acute abnormality. CTA head and neck showed complete occlusion of the right vertebral artery, severe stenosis greater than 70% in both proximal internal carotid arteries. Moderate mediastinal
lymphadenopathy possibly reactive versus fred metastatic disease. Mild acute interstitial/alveolar cardiogenic pulm edema. Small bilateral pleural effusions.
High concern for CVA versus less likely seizure/postictal state. Patient was deemed to not be TNK candidate due to unclear when last known normal. Rectal aspirin continued. Neurology consulted and recommending MRI brain, CT cervical spine, EEG.
Urinalysis, TSH, Lyme serology, UDS pending. Aspirin continued. Keppra load given and continued. Start gentle IV fluids as patient appears dry despite findings of heart failure on CT scan
Patient was taken to [facility] for urgent pacemaker for third-degree heart block. She underwent femoral vein TVP. Check echo. Cardiology following.
--- NOTE | 2024-04-25 20:30 | PTCARENOTE ---
pt with increased work of breathing, RR 40s-50s, loud rhonci and use of accessory muscles to breathe. RT by to assess. RR called for respiratory distress. Labs drawn, moved pt to ICU and report given to ICU nurse. Called daughter with update,
Daughter says to intubate If needed
--- NOTE | 2024-04-25 21:05 | W.PN.UPDATE ---
Update Note
Progress Note Update
SERVICE DELIVERY MANAGER
Patient is tachypneic, WOB, restless, using accessory muscles for breathing, SPO2 90% on O2/NC, hypertensive. Coarse lung sounds
Plan
-Stat chest x-ray, stat lab (abg, covid, flu, lactic acid, cbc, bmp, mag, Pro BNP).
-Discussed with the loader technician and will transfer the patient to ICU.
-Patient currently full code, spoke with the daughter/ Mariel updated regarding the declining in condition, and discussed the plan to transfer to ICU for possible intubation/vent and daughter agreed with the plan.
[2024-04-25 21:10] LABS: B.E. -12.9 mmol/L; O2 Saturation % 90.6 % (94-98); PCO2 29 mmHg (35-48); PO2 65 mmHg (83-108); pH 7.25 (7.35-7.45)
[2024-04-25 21:12] LABS: HCO3 12.7 mmol/L (21-28)
[2024-04-25 21:23] LABS: Blood Urea Nitrogen 20 mg/dl (9-20); Calcium 10.5 mg/dl (8.4-10.2); Carbon Dioxide 16 mmol/L (22-30); Chloride 106 mmol/L (98-107); Estimated Creatinine Clearance 42 ml/min; Glucose 240 mg/dl (70-99); Magnesium 1.7 mg/dl (1.6-2.3); Potassium 4.3 mmol/L (3.5-5.1); Sodium 142 mmol/L (135-145); eGFR 46.77
[2024-04-25 21:24] LABS: Lactic Acid 5.4 mmol/L (0.7-2.0)
[2024-04-25 21:25] LABS: Hematocrit 47.9 % (39.0-52.0); Hemoglobin 16.1 g/dL (13.0-18.0); Mean Corp Hgb Conc. 33.6 g/dL (33.0-37.0); Mean Corpuscular Hgb 32.3 pg (27.0-31.0); Mean Corpuscular Volume 96.2 fL (80.0-94.0); Platelet Count 210 10^3/uL (130-400); Red Blood Cell Count 4.98 10^6/uL (4.70-6.10); White Blood Cell Count 19.6 10^3/uL (4.8-10.8)
[2024-04-25] MEDS: DIPRIVAN 100 IV (21:30)
--- NOTE | 2024-04-25 21:30 | W.PN.ANESINT ---
Anesthesia Intubation Note
- Intubation Note
Intubation Note:
Diagnosis: respiratory distress
Blade: glidescope
Tube Size: 8.9 Hi Lo
Depth: 23cm at the lip
Side Taped: center
Drugs Used: 100mg propofol, 50mg rocuronium
Grade View:1
EtCO2 Present: ETCO2 change present with detector
Atraumatic: atruamatic
Attempts: two
Insertion Start and Stop Time: start 2114 end 2119
SaO2 Pre: 93
SaO2 Post: 95
Glidescope Used: yes
Other Airway Adjustments: none
Pre-Oxygenated: preoxygenated
Portable Chest X-Ray: ordered
RSI: yes
Suctioned: thick cloudy secretions
Bilateral Breath Sounds Confirmed: bilateral breath sound sconfirmed, no breath sounds over abdomen
Vent Settings:
Settings per __X_Attending Physician
Abena Pinedo CRNA
[2024-04-25 21:31] LABS: NT-proBNP 6020 pg/ml
[2024-04-25] MEDS: SUBLIMAZE 100 IV (21:31)
[2024-04-25] MEDS: SODIUM BICARBONATE 50 MEQ IV (21:32)
[2024-04-25] MEDS: SUBLIMAZE 100 MCG IV (21:32)
[2024-04-25 21:48] LABS: COVID-19 Antigen Negative (Negative)
[2024-04-25 21:56] LABS: Phosphorus 5.4 mg/dl (2.5-4.5)
[2024-04-25 22:03] LABS: Procalcitonin < 0.05 ng/ml (0.0-0.25)
[2024-04-25 22:06] LABS: Triglycerides 190 mg/dl (10-149)
[2024-04-25] MEDS: KEPPRA 500 MG IV (22:09)
[2024-04-25] MEDS: MAGNESIUM SULFATE 100 IV (22:10)
[2024-04-25] MEDS: UNASYN IV (22:10)
[2024-04-25] MEDS: SODIUM BICARBONATE 1150 MEQ IV (22:11)
[2024-04-25 22:55] LABS: B.E. -11.5 mmol/L; HCO3 18.5 mmol/L (21-28); O2 Saturation % 90.5 % (94-98); PCO2 57 mmHg (35-48); PO2 70 mmHg (83-108)
[2024-04-25 22:57] LABS: pH 7.12 (7.35-7.45)
[2024-04-25] MEDS: SUBLIMAZE 50 MCG IV ×2 (23:18→23:51)
[2024-04-25] MEDS: NOVOLOG FLEXPEN-MODERATE RESISTANCE 3 UNITS SC (23:31)
[2024-04-25 23:34] LABS: Glucose - Point of Care 227 mg/dl (70-99)
[2024-04-25] MEDS: ATIVAN 2 MG IV (23:51)
[2024-04-25] MEDS: TYLENOL/FEVERALL 650 MG RECTAL (23:52)
[2024-04-26] VITALS (127 sets, daily range): BP systolic 51–152; BP diastolic 24–87; BMI 23.6
--- NOTE | 2024-04-26 | PTCARENOTE ---
pt was rapid, transfer to ICU, upon arrival pt was unresponsive and tachypneic, was intubated, weak gag and cough, no corneal, pupils 2 sluggish, not following commands, unable to obtain accurate NIH due to sedation refer to worklist, pt V paced,
temp pacer 80/20/5 through R fem, weak pulses, ETT #8 22 @ lip, AC 14/400/5/80, coarse, crackles throughout, blood tinged secretions from ETT, NGT placed L nare 60cm to LIS, XR verified placement, BSx4 hypoactive, temp sensing harris, yellow output,
DISPLAY MAKER made aware of decrease in urine output refer to MAR, inguinal hernia, R hand skin tear foam applied, stage1 sacrum foam applied, prophylactic heel foams, 18G LAC, 20G L hand, 20G R upper, prop, fent, and bicarb gtts, otherwise rfer to
documentation
[2024-04-26] MEDS: SUBLIMAZE 50 MCG IV ×4 (00:49→11:45)
[2024-04-26] MEDS: LASIX 20 MG IV (01:35)
--- NOTE | 2024-04-26 02:14 | PTCARENOTE ---
BP decreased, INTERNET DATABASE SPECIALIST made aware Levo started refer to worklist
[2024-04-26 02:58] LABS: Lactic Acid 4.1 mmol/L (0.7-2.0)
[2024-04-26] MEDS: UNASYN IV ×3 (03:11→22:12)
[2024-04-26 04:21] LABS: B.E. -2.9 mmol/L; PCO2 38 mmHg (35-48); PO2 103 mmHg (83-108); pH 7.37 (7.35-7.45)
[2024-04-26 04:34] LABS: Hematocrit 46.6 % (39.0-52.0); Hemoglobin 16.3 g/dL (13.0-18.0); Mean Corpuscular Hgb 32.7 pg (27.0-31.0); Mean Corpuscular Volume 93.4 fL (80.0-94.0); Mean Platelet Volume 10.5 fL (7.4-10.4); Platelet Count 219 10^3/uL (130-400); Red Blood Cell Count 4.99 10^6/uL (4.70-6.10); Red Cell Dist. Width 14.1 % (11.5-14.5); White Blood Cell Count 19.1 10^3/uL (4.8-10.8)
[2024-04-26 04:41] LABS: Lactic Acid 3.6 mmol/L (0.7-2.0)
[2024-04-26 05:05] LABS: ALT (SGPT) 21 U/L (0-50); AST (SGOT) 35 U/L (17-59); Albumin 4.2 g/dl (3.5-5.0); Alkaline Phosphatase 96 U/L (38-126); Blood Urea Nitrogen 25 mg/dl (9-20); Calcium 10.1 mg/dl (8.4-10.2); Carbon Dioxide 19 mmol/L (22-30); Chloride 106 mmol/L (98-107); Estimated Creatinine Clearance 33 ml/min; Glucose 173 mg/dl (70-99); HDL Cholesterol 40 mg/dl; LDL Cholesterol, Calculated 31 mg/dl; Magnesium 1.9 mg/dl (1.6-2.3); Potassium 6.1 mmol/L (3.5-5.1); Sodium 142 mmol/L (135-145); Total Bilirubin 1.6 mg/dl (0.2-1.3); Total Cholesterol 110 mg/dl (50-199); Total Protein 7.2 g/dl (6.3-8.2); Triglyceride 198 mg/dl (10-149); Very Low Density Lipoprotein 39 mg/dl (0-30); eGFR 35.22
--- NOTE | 2024-04-26 05:20 | W.PN.UPDATE ---
Update Note
Progress Note Update
04/26/24
2100-
Rapid response called for increased work of breathing and tachypneic, minimally responsive to noxious stimuli. Patient was transferred to ICU by hospitalist CA. Upon arrival to ICU patient was intubated for acute hypoxemic respiratory failure
with mixed respiratory/metabolic acidosis. Chest xray concerning for pulmonary edema. BROKE BEATER MACHINE OPERATOR was called for intubation, intubated without event. Light sedation protocol with fentanyl and propofol gtts initiated. Bicarb 12.7 and bicarb gtt ordered.
Patient now febrile 100.6, tylenol prn. Concern for aspiration pneumonia, will obtain blood cultures and UA, influenza/covid, start antibiotics.
04/26/24
0400-
Bulging left groin protrusion noted on perineal area above patient's penis. Condom catheter was removed previously removed and harris catheter placed, penis slightly pale/dusky. No bruising noted, area soft and palpable; unclear at this time, could
be ?edema vs hernia vs hematoma. Morning labs sent to check hemaglobin. Vasopressor requirements have increased, but also patient's temp has increased 102. No acute color changes in leg, bilateral feet cooler and more dusky, pedal pulse in right
leg palpable, popiteal doppler in left leg. Dr. Perera, photographer's model, and Dr. Lane, sand conditioner machine both updated on concerning area in groin (Left side worse than right, right side has sheath/catheter). Dr. Mcguire, interventional cardiology, was
contacted as well.
[2024-04-26 05:50] LABS: Hematocrit 45.4 % (39.0-52.0); Hemoglobin 15.6 g/dL (13.0-18.0); Mean Corp Hgb Conc. 34.4 g/dL (33.0-37.0); Mean Corpuscular Hgb 32.6 pg (27.0-31.0); Mean Corpuscular Volume 94.8 fL (80.0-94.0); Mean Platelet Volume 10.4 fL (7.4-10.4); Platelet Count 207 10^3/uL (130-400); Red Blood Cell Count 4.79 10^6/uL (4.70-6.10); White Blood Cell Count 18.9 10^3/uL (4.8-10.8)
--- NOTE | 2024-04-26 05:50 | PTCARENOTE ---
systems reviewed, pt urine output decreased, PROPERTY UTILIZATION OFFICER notified, left groin bulge soft, not ecchymotic, KVO bag noticed to not be running, dressing assessed, stopcock turned to off, PROPERTY UTILIZATION OFFICER notified dressing reinforced, labs sent, gtts titrated per worklist.
[2024-04-26 06:06] LABS: Blood Urea Nitrogen 25 mg/dl (9-20); Carbon Dioxide 19 mmol/L (22-30); Chloride 107 mmol/L (98-107); Estimated Creatinine Clearance 33 ml/min; Glucose 172 mg/dl (70-99); Potassium 6.1 mmol/L (3.5-5.1); Sodium 141 mmol/L (135-145); eGFR 35.22
[2024-04-26] MEDS: NOVOLOG FLEXPEN-MODERATE RESISTANCE 1 UNITS SC ×3 (06:07→18:35)
--- NOTE | 2024-04-26 06:09 | PTCARENOTE ---
K 6.1, repeat sent, resulted K 6.1, AUTOMATIC BANDSAW TENDER notified, pt fever 101.7, ice packs applied, tylenol given rectally, otherwise refer to documentation
[2024-04-26] MEDS: TYLENOL/FEVERALL 650 MG RECTAL (06:13)
[2024-04-26] MEDS: DEXTROSE 50% SYRINGE 25 GRAMS IV (06:20)
[2024-04-26] MEDS: NOVOLIN R 10 UNITS IV (06:20)
[2024-04-26] MEDS: LOKELMA 10 GRAM PO (06:21)
[2024-04-26] MEDS: LEVOPHED 250 IV ×3 (06:26→21:22)
[2024-04-26] MEDS: SODIUM BICARBONATE 1150 MEQ IV ×2 (06:28→17:58)
[2024-04-26] MEDS: SUBLIMAZE 100 IV ×2 (06:42→14:35)
[2024-04-26 07:08] LABS: Glucose - Point of Care 190 mg/dl (70-99)
[2024-04-26] MEDS: ASPIRIN 300 MG RECTAL (07:27)
[2024-04-26] MEDS: KEPPRA 500 MG IV ×2 (07:27→19:36)
--- NOTE | 2024-04-26 08:00 | PTCARENOTE ---
Received pt @ change of shift intubated/sedated/restrained w b/l soft limb/4 rails- see flow sheet. Unresponsive; pupils 2mm/sluggish; weak cough/gag reflex; corneals present. EEG completed @ bedside this AM. 100% v-paced on monitor; temp pacer
set 80/20/5 via R fem cordis. SpO2 99% on vent settings AC18/400/.100/+5. Auscultated coarse breath sounds w scatt rhonchi and crackles @ bases. Scant amt of secretions from ett. Hypoactive BS, abd soft/round. Large L inguinal hernia. L nare NGT
to LIS draining small-mod amt green output. Thermistor harris in place draining clear/yellow urine; oliguric w output 10-20mL/hr. #20 L hand patent,dressing c/d/i. #18 L AC w levo gtt; #20 R AC e bicarb gtt and fent gtt- see flow sheets. R groin
cordis dressing w stop cock under sterile dressing; ser/sang drainage in pacer wire tubing; no IVF infusing via cordis @ this time d/t poss leakage; VAT and MD notified.
--- NOTE | 2024-04-26 08:30 | W.PN.CARDCBS ---
Today's Communication / Plan
-
Continue supportive care
Keep temporary wire in place
Permanent pacemaker when stabilized
Consider IV furosemide, hold for now
Pressor support as needed
Check echo, follow-up troponin
Impression / Plan
-
PCP: Onur Penaloza MD
Cardiology: Bronson Nunez MD
Impression:
Acute encephalopathy, unclear etiology at this time, concern for CVA
Fever, negative procalcitonin, negative COVID and flu
Acute heart failure, EF unknown
Shock, clinical sepsis versus cardiogenic versus SIRS
Complete heart block, temporary wire placed 07/23/2024
CAD status post PCI 2015
Ischemic cardiomyopathy with recovered EF
Hypertension
Dyslipidemia
Diabetes mellitus type 2
Colon cancer s/p resection 12/2021
MARYA
Severe cerebrovascular disease, greater than 70% bilateral internal carotid stenosis, occlusion of right vertebral, patent left vertebral
Mediastinal lymphadenopathy
Detectable troponin 0.018
Cath 07/2015: Promus stent of RCA. There was moderate disease of LAD and diagonal and ejection fraction was 45%.
Cerebrovascular CTA: Bilateral greater than 70% stenosis, occluded left vertebral
CT of chest abdomen pelvis: No metastatic disease
Echo 07/04/2015: EF 45% with mild inferior hypokinesis.
Echo 03/09/2021: EF 55%, no regional wall motion abnormality, mild MR, mild TR, trivial pericardial effusion
Plan:
He remains with very high-grade AV block. Occasionally conducts. He has had rare failure of ventricular pacing, though threshold currently is 1 mV.
Patient obviously will require permanent pacemaker, but clinically he is still unstable. He is febrile, intubated, with either septic shock or possibly cardiogenic shock. He is on Levophed at this time. He has mental status changes, possibly
related to severe hypoperfusion with high-grade bilateral carotid disease and an occluded vertebral. No acute evidence of stroke.
He remains on the ventilator and has acute kidney injury. Ideally he would be treated with furosemide, but given marginal hemodynamics and MARYA will hold off for now.
Repeat troponin, await echo, pressor support as needed.
Total time greater than 40 minutes.
Clinical summary: 78-year-old man, active, exercises, history of non-STEMI in 2016, Promus stent to RCA with moderate LAD and diagonal disease, EF 45%, history of noncompliance, diabetes, hypertension, hyperlipidemia, colon cancer resected 2021,
found confused on floor with complete heart block on February 22. Shortly after admission fever, lactic acidosis, respiratory failure requiring intubation, temporary pacing wire placed 04/25/2024.
Progress Note - Scarifier Operator
Subjective
Date of Service: April 26, 2024:
Daughter Mariel at bedside, patient is intubated, on fentanyl, propofol is off, MAP is 60 on 14 of Levophed, 100% V paced
Current meds: Levetiracetam 500 every 12, aspirin 300 rectally daily, IV fentanyl, IV propofol, Unasyn, insulin, norepinephrine
140/87, pulse 82, respiratory 25, temp 38.7,Blood pressure 85/70, blood pressure 150/50, pulse 80, sats 93% on the ventilator, 100%, sedated, lungs relatively clear, regular rate and rhythm, paced, no obvious murmurs, no edema, pulses intact
Chest x-ray intubated, bilateral haziness, RV pacing wire, central line
EKG sinus rhythm with heart block and ventricular pacing with A-V dissociation
Procalcitonin negative, Potassium 6.1, bicarb 19, BUN and creatinine 25 and 1.9, anion gap 15, lactic acid is 3.6 had been 5.4, troponin 0.1, proBNP 6020, creatinine was 1.3 on admission
Pacing threshold 1 mV
Ultrasound of groin-obvious hernia
Objective
Labs:
04/26/24 05:29
Labs
Hgb 15.6 g/dL (13.0-18.0) 04/26/24 05:
Hct 45.4 % (39.0-52.0) 04/26/24 05:29
Plt Count 207 10^3/uL (130-400) 04/26/24 05:29
PT 16.0 Sec (11.4-14.6) H 04/25/24 15:43
INR 1.25 04/25/24 15:43
APTT 43.7 Sec (23.4-35.0) H 04/25/24 15:43
Sodium 141 mmol/L (135-145) 04/26/24 05:29
Potassium 6.1 mmol/L (3.5-5.1) H* 04/26/24 05:29
BUN 25 mg/dl (9-20) H 04/26/24 05:29
Creatinine 1.9 mg/dL (0.7-1.3) H 04/26/24 05:29
Glucose 172 mg/dl (70-99) H 04/26/24 05:29
Troponins
04/25/24
15:43
Troponin I 0.018
Vital Signs and I&O:
Vital Signs
Temp Pulse Resp BP Pulse Ox
38.7 C H 82 25 140/87 94
04/26/24 07:24 04/26/24 06:30 04/26/24 06:30 04/26/24 06:30 04/26/24 08:21
Vital Signs
Temp Pulse Resp BP Pulse Ox
38.7 C H 82 25 140/87 94
04/26/24 07:24 04/26/24 06:30 04/26/24 06:30 04/26/24 06:30 04/26/24 08:21
Intake & Output
04/24/24 04/25/24 04/26/24 04/27/24
07:59 07:59 07:59 07:59
Intake Total
Output Total 150 / 150
Balance 1861. / 1861.
Physical Exam
Physical Exam
See above
[2024-04-26 09:00] LABS: Lactic Acid 3.7 mmol/L (0.7-2.0)
[2024-04-26 09:00] LABS: Glucose - Point of Care 185 mg/dl (70-99)
[2024-04-26 09:04] LABS: Blood Urea Nitrogen 24 mg/dl (9-20); Calcium 8.2 mg/dl (8.4-10.2); Carbon Dioxide 20 mmol/L (22-30); Chloride 107 mmol/L (98-107); Estimated Creatinine Clearance 35 ml/min; Glucose 188 mg/dl (70-99); Potassium 3.9 mmol/L (3.5-5.1); Sodium 141 mmol/L (135-145); Urine Albumin 2+ (Neg - Trace); Urine Bilirubin Negative (Negative); Urine Character Clear (Clear); Urine Color Yellow; Urine Glucose 3+ (Negative); Urine Ketone 1+ (Negative); Urine Leukocyte 1+ (Negative); Urine Nitrite Negative (Negative); Urine Occult Blood 4+ (Negative); Urine Specific Gravity 1.015 (<1.030); Urine Urobilinogen Negative (Neg - 1+); eGFR 37.58
[2024-04-26 09:18] LABS: Urine Squamous Cell 16-20 /LPF (Few)
[2024-04-26 09:19] LABS: Urine Amorphous Seen; Urine Urothelial Cell 26-30 /LPF (FEW)
[2024-04-26 09:21] LABS: Urine Granular Cast 0-2 /LPF (0); Urine Red Blood Cell 26-30 /HPF (0-2)
[2024-04-26 09:23] LABS: Urine White Cell 30-40 /HPF (0-5)
[2024-04-26 09:24] LABS: Urine Bacteria Few (Negative)
--- NOTE | 2024-04-26 09:53 | CM ---
CM following re: discharge planning.
Reviewed pt's chart, met with pt. Pt's daughter and son at bedside.
Pt is an 78 year old male, admitted with primary dx of acute hypoxemic respiratory failure with mixed respiratory/metabolic acidosis. Per Rounds meeting, pt intubated last night, continue supportive care.
Pt livers with daughter 2SH, 3 steps to enter, has 2 supportive children. 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 No VN or SNF history.
AD brochure provided to pt's daughter and son.
PCP: Onur Penaloza
pharmacy: [facility]
D/C plan: uncertain at this time and will depend on pt's progress.
CM will follow with discharge plan updates as hospitalization progresses.
--- NOTE | 2024-04-26 10:08 | PTOTSP ---
Reviewed chart and s/w RN, pt has since been intubated after PT orders were entered, so PT evaluation is not appropriate at this time. Agreed to sign off at this time. Will need new orders at a later date after extubated and stable to begin activity.
--- NOTE | 2024-04-26 10:36 | EEG.RPT ---
Electroencephalogram Report
Recording
Date of EE04/26/24
Type of EEG: Routine
Length of EEG recordin minutes
Done with Video Recording: Yes
Patient Status: Inpatient
Recording Conditions: Drowsy
Hyperventilation Performed: No
Photic Stimulation Performed: Yes
Report
LESS THAN 1 HOUR ELECTROENCEPHALOGRAM (EEG) REPORT
EEG INTERPRETATION:
Severely abnormal EEG for age due to absence of a well defined cortical rhythm and minimal reactivity.
CLINICAL CORRELATION:
This study was consistent with minimal electrographic demonstration of cortical activity. No epileptiform features are defined.
Clinical correlation is advised.
METHODS:
A 21 channel digitized electroencephalogram (EEG) was performed at the bedside in the ICU. The 10/20 international system of electrode placement was used with ECG and lateral/vertical eye movements recorded. Video was recorded. Persyst quantitative
EEG analysis performed.
ELECTROENCEPHALOGRAPHER IMPRESSION(S):
Quality of study
Fair, limited by respirator-associated movement
Background
There was no clear anterior-posterior voltage gradient.
The background activity was a very low amplitude beta.
There was no significant reactivity of the record with the exception of minimal muscle artifact noted.
Sleep
Not discernable
Hyperventilation
Not performed
Photic Stimulation
Failed to activate the record
ECG
Normal sinus rhythm
[2024-04-26] MEDS: PROTONIX IV 40 MG IV (11:41)
[2024-04-26] MEDS: NSS (PRESERVATIVE FREE) 10 ML IV (11:41)
--- NOTE | 2024-04-26 11:45 | CON.INTV ---
Consultation
Consultation Request
Date/Time Consultation Requested: 04/25/2024 21:46
Date/Time Consultation Performed: 04/26/2024 08:00
Requesting Provider: Matilde Koenig
Performing Provider: Jonas Lane MD; David Gonzalez DO (Resident)
Reason for Consultation: ICU Management
Medical History
-
History of Present Illness:
78M with a past medical history of essential HTN, HLD, CAD with a hx of RI, DM II, and colon cancer s/p resection in 2021 who presented to the ED yesterday with altered mental status. 30 minutes prior to arrival in the ED, patient was found by his
family sitting on the floor with a facial droop and slurred speech. It is questionable as to when the patient was last witnessed or heard to be at his baseline, with possible alterations in speech noted more than 4 hours prior to arrival. EMS was
promptly called, and patient was found to be in complete heart block en route to hospital. (Patient's watch also may have shown him to have bradycardia on the day preceding this event as well.)
In the ED, patient was bradycardic, aphasic, not following commands, and exhibited a possible mild left sided facial droop. CT of the head w/o IV contrast did not reveal bleed or infarct. ECG showed 3rd degree heart block, widened QRS and RBBB. CTA
of the Head/Neck showed complete occlusion of the R vertebral artery at the origin and >70% stenosis of the bilateral ICAs.
Cardiology and Neurology were consulted and patient was sent to the senior cytogenetics laboratory director for urgent pacemaker placement. TVP was placed through the right common femoral vein.
Last night at approximately 2100, patient became tachypneic with increased WOB, and accessory muscle use. Patient with fever, leukocytosis, lactic acidosis. The patient was intubated and was admitted to the intensive care unit for vent management
and pressor support.
Past Medical History
Past Medical History: CAD (hx RI), Cancer (colon, s/p resection in 2021), HTN, Hypercholesterolemia, NIDDM and RI
Past Surgical History: Appendectomy, Bowel Resection, Cardiac (stent) and Other (cataracts, melanoma removal)
Social History
Tobacco: Non-smoker
Alcohol: None
Drug: None
Living: With Family
Employment: Retired
Family History
Family History: Reviewed & Not Pertinent
Allergies / Home Medications
Allergies
Allergy/AdvReac Type Severity Reaction Status Date / Time
shellfish derived Allergy Itching Verified 04/25/24 15:20
shrimp Allergy Itching Verified 04/25/24 15:20
Home Medications
�Medication �Instructions �Recorded �Confirmed �Last Taken �Type
atorvastatin 40 mg tablet 40 mg PO DAILY High cholesterol 07/12/20 01/22/22 01/22/22 History
metformin 500 mg tablet 1,000 mg PO BID@0800,1700 Diabetes 07/12/20 01/22/22 01/22/22 History
aspirin 81 mg tablet,delayed 81 mg PO DAILY Blood clot 12/17/21 01/22/22 01/22/22 History
release prevention/tx
cholecalciferol (vitamin D3) 25 25 mcg PO DAILY Supplement 12/17/21 01/22/22 01/22/22 History
mcg (1,000 unit) tablet
lisinopril 20 mg tablet 20 mg PO DAILY #90 tabs 12/24/21 01/22/22 01/22/22 Rx
docusate sodium 100 mg capsule 100 mg PO DAILY #30 caps 03/15/22 Unknown Rx
(Colace)
empagliflozin 10 mg tablet 10 mg PO DAILY 04/25/24 Unknown History
(Jardiance)
Review of Systems
-
Unable to Obtain full review of systems at this time due to: Patient Intubation
History Source: Family
Vitals / Labs / Diagnostic Testing
Vital Signs
Temp Pulse Resp BP Pulse Ox
101.8 F H 80 18 94/60 99
04/26/24 11:18 04/26/24 09:15 04/26/24 09:15 04/26/24 09:15 04/26/24 09:15
Lab Data
04/26/24 05:29
04/26/24 20:00
Laboratory Results
04/25/24 04/25/24 04/25/24
15:43 21:02 22:43
PT 16.0 H
INR 1.25
APTT 43.7 H
pH 7.25 L 7.12 L*
pCO2 29 L 57 H
pO2 65 L 70 L
HCO3 12.7 L* 18.5 L
O2 Delivery Level Not Reportable
04/26/24
04:06
PT
INR
APTT
pH 7.37
pCO2 38
pO2 103
HCO3 22.0
O2 Delivery Level
Microbiology
04/25/24 21:27 Nasal Swab Influenza Types A & B (JAYLA) - Final
Negative for Influenza A & B, NAAT
Negative results must be combined with clinical observations
and patient history.
Nucleic Acid Amplification test (NAAT)performed on the
[employer] platform.
Diagnostic Testing:
CT Head (04/25):
1. No CT evidence for acute intracranial hemorrhage or transcortical infarct.
2. Moderate white matter leukoaraiosis in the frontal and parietal lobes.
3. Mild to moderate diffuse cerebral and cerebellar volume loss.
CTA Head/Neck (04/25):
NECK CTA:
1. COMPLETE OCCLUSION of the RIGHT VERTEBRAL ARTERY at the origin.
2. SEVERE STENOSES (greater than 70% diameter) in BOTH PROXIMAL INTERNAL CAROTID ARTERIES secondary to severe calcific atherosclerotic plaque.
3. Patent left vertebral artery.
4. Moderate mediastinal lymphadenopathy which has increased since 12/15/2023. Diagnostic possibilities are (1) reactive lymphadenopathy or (2) fred metastatic disease.
5. Mild acute interstitial and alveolar cardiogenic pulmonary edema.
6. Small bilateral pleural effusions.
7. Severe discogenic degenerative disease and facet joint arthrosis in the cervical spine.
HEAD CTA:
1. Severe calcific atherosclerotic plaque in both intracranial internal carotid arteries causing greater than 70% diameter stenosis in the cavernous and clinoid segments of the left ICA and 50-70% diameter stenosis in the clinoid segment of the
right ICA.
2. 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
3. No CTA evidence for middle cerebral artery stenosis or occlusion.
4. Retrograde blood flow into the right intracranial vertebral artery.
5. No CTA evidence for stenosis or occlusion in the left vertebral, basilar, or posterior cerebral arteries.
6. Moderate white matter leukoaraiosis.
7. Mild to moderate diffuse cerebral and cerebellar volume loss.
CT Cervical Spine (04/25):
1. 3 mm anterolisthesis of C4 on C5 secondary to severe right-sided facet joint arthrosis. Moderate sized disc-osteophyte complex at C4/C5 causing moderate spinal cord compression and central canal stenosis. Severe right neural foraminal narrowing
at C4/C5.
2. Severe discogenic degenerative disease at C5/C6 and C6/C7 with disc-osteophyte complexes at both levels causing mild spinal cord compression and central canal stenosis. Moderate bilateral neural foraminal narrowing at C6/C7.
3. Severe calcific atherosclerotic plaque in both carotid bifurcations.
4. Mild interstitial and alveolar cardiogenic pulmonary edema in the lungs.
5. Small bilateral pleural effusions.
CXR (04/25) s/p pacemaker placement:
Bilateral interstitial pulmonary opacities most suspicious for pulmonary edema.
No large pleural effusion or pneumothorax. A defibrillator pad overlies the right lung apex. Right Port-A-Cath with the catheter tip at the cavoatrial junction. Multiple external wires overlie the chest. Mild enlargement of the cardiac silhouette.
CXR (04/25) s/p intubation
The endotracheal tube is well-positioned with the tip in the midthoracic trachea.
CXR (04/26) s/p NG tube:
Satisfactory NG tube placement.
Probable small partially layering bilateral pleural effusions with associated atelectasis, slightly progressed. Mild CHF/volume overload not excluded.
US Groin (04/26):
Scanning over the area of interest in the left groin demonstrates a probable hernia which may contain bowel, difficult to fully visualize. Consider CT for further evaluation as clinically indicated.
Physical Exam
-
HEENT: Normocephalic, Anicteric and Other (intubated, NG tube in place)
Cardiovascular: Regular Rhythm (paced), Murmur (n), Rub (n) and Peripheral Edema (n)
Respiratory: Clear (anteriorly), Wheeze (n), Rales (n), Rhonchi (n) and Other (intubated)
GI: Soft and Non Distended
Neurology: Other (sedated)
Skin: Warm
General: Respiratory Distress (n) and Fever
Assessment
-
78M with a past medical history of HTN, HLD, CAD, DMII, RI s/p stent in 2015, and colon CA s/p colonic resection in 2021 who presented to the hospital with altered mental status of unknown duration with negative brain imaging and found to be in
complete heart block is status post temporary transvenous pacemaker placement. 4 hours after stent procedure completed, patient became tachypneic with increased work of breathing, accessory muscle use, and required intubation. Patient was admitted
to the ICU last night after intubation for vent management and pressor support.
Impression:
Acute Encephalopathy of Unknown Etiology - possible CVA, possible severe hypoperfusion
- CT Head w/o contrast negative for bleed/infarct.
- MRI pending patient's clinical status, will need to be temporarily removed from pacing.
- EEG: Severely abnormal EEG for age due to absence of a well defined cortical rhythm and minimal reactivity.
- CTA Head/Neck revealed complete occlusion of the R vertebral artery at its origin and >70% stenosis of the bilateral internal carotid arteries. Altered mental status could be explained by acute hypoperfusion secondary to complete heart block in
the setting of chronic hypoperfusion secondary to vasoocclusive disease.
- Given loading dose of Keppra and continued on 500 mg q12h.
Fever of Unknown Etiology - UTI vs. Aspiration vs. Diarrheal Illness
- Febrile since last night (2300), TMax 102.2.
- Procal negative.
- Per patient's daughter, patient has had diarrheal illness x approximately 4 days prior to arrival.
- Pulmonary infiltrates not readily apparent on CXR, but aspiration is a possibility, given the patient's acute respiratory decompensation last night.
- Urinalysis appears unequivocal, pending urine culture.
- Blood cultures pending.
- WBC 12.9 on arrival, increased to 19.6 last night. Patient started on Unasyn 3g IV q6h.
Shock - septic vs. cardiogenic
- See above.
- Currently requiring 10 mcg/min Levophed infusion. MAP = 72.
- Lactic Acid 5.4 last night, slowly improving, 3.7 this AM.
Complete Heart Block s/p TTVP placement 04/25
- TTVP set at 80 bpm, 20 amps, threshold currently 1mV.
- Will require PPM, discussed with daughter who is in agreement, likely after condition stabilizes.
Acute Heart Failure
- CXR shows bilateral pulmonary interstitial opacities possibly consistent with pulmonary edema
- BNP 6020.
- Likely secondary to heart block
- Last ECHO in 2021: EF 55%, improvement from prior (45%). Patient with history of ischemic cardiomyopathy.
- Troponin neg (0.0180) on admission, prior to TTVP placement.
Acute Kidney Injury
- Creatinine 1/3 on arrival and progressively worsening; latest 2.3 this PM.
- Potentially cardiorenal in the setting of cardiogenic shock vs prerenal in the setting of septic shock
Other Chronic Conditions Present on Arrival
CAD status post PCI 2015
Ischemic cardiomyopathy with recovered EF
Hypertension
Dyslipidemia
Diabetes mellitus type 2
Colon cancer s/p resection 12/2021
PLAN:
Neuro:
RASS goal 0 to -1.
Continue Fentanyl, propofol has been off since this AM.
Patient will need MRI to complete stroke work up. Will need to be temporarily removed from pacing.
Follow up Neurology recommendations.
Continue Keppra 500 mg IV BID
Acetaminophen 650 mg oral v rectal for pain.
Cardiovascular:
Continue Levophed for pressor support; wean as tolerated. MAP goal > 65.
Consider PICC vs Central Line for IV access; or Cathflow through Cordis
Vasoocclusive disease apparent on head/neck imaging, will need vascular consult once stable.
Continue TVP pacing; will need PPM once stable.
Acute HF ideally treated with Furosemide, but continue to hold given pressor support and MARYA.
Repeat troponin this afternoon
Update ECHO
ASA 300 mg rectally for antiplatelet therapy
Respiratory
Continue on Vent; ABG normalized. Consider wean.
Pulmonary edema likely secondary to acute heart failure, see above.
Continue Unasyn for potential aspiration pneumonia.
Continue to trend fever curve, WBC.
Aspiration precautions.
GI
NPO while ventilated, currently has NG tube.
Ulcer ppx with Protonix 40 mg IV
Bowel regimen PRN
Renal
Continue to trend Cr.
See Cardiovascular as MARYA is likely secondary to cardiorenal syndrome.
Bicarb at 125 mL/hr
ID
Continue Unasyn 3g IV q6h
Follow up blood cx, urine cx.
Follow fever curve, WBCs, trend lactate
Heme/Onc
DVT PPx: SCD + Heparin 5,000 U SQ q8h
Endocrine
Insulin Sliding Scale
Data Reviewed
-
EKG: Tracing personally visualized and interpreted and Report reviewed by me
Radiology: Image personally visualized and interpreted and Report reviewed by me
CT Scan: Report reviewed by me
Ultrasound: Report reviewed by me
Labs: Labs reviewed by me
[2024-04-26 12:00] LABS: Glucose - Point of Care 184 mg/dl (70-99)
--- NOTE | 2024-04-26 12:00 | PTCARENOTE ---
R fem cordis dressing, redressed w VAT. Stopcock was turned off to patient under sterile dressing; dressing change completed w sterile technique, leaving stopcock out of sterile dressing. Pacer wire tubing remains backing up w blood; line not
flushed d/t unclear information regarding flushing/current state of line. S/P dressing change, pacer w difficulty capturing. TT Dr. Simon above findings and MD came to bedside to assess. R fem cordis flushed w 10cc mL w + blood return by MD. MD
reported approval to use cordis. Temp pacer settings also changed by Dr. Simon to 40//. EKG completed before/after pacer setting changes w Dr. Simon and EKGs reviewed @ bedside. Unable to obtain MRI d/t transvenous pacer. No plan for perm
pacer set @ this time; awaiting further infectious wkup per MD team. Family @ bedside, updated on plan of care.
--- NOTE | 2024-04-26 13:38 | W.PN.HOSP.TC ---
Today's Communication/Plan
-
see outlined plan
Assessment / Plan
Assessment / Plan
Assessment:
Complete heart block
- s/p temp pacer
- management per Cardiology
VDRF
- suspected related to acute aspiration pneumonia vs CHF
- vent/sedation per ICU team
Shock, likely mixed state (cardiogenic, septic)
- wean pressors as able; currently on Levophed 8 mcg
- continue Unasyn day 1 for concern of aspiration pneumonia
MARYA
Acute hyperkalemia
- suspected related to shock state
- continue Goel, monitor UOP
- continue bicarbonate IVF
- s/p Lokelma for hyperK+
- hold nephrotoxins
Acute heart failure, EF unknown
Encephalopathy, likely related to critical illness, but cannot rule out CVA
- could be related to low flow state with CHB and bilateral carotid stenosis
- EEG pending; on Keppra per Neurology
- await MRI brain when feasible. CT head in 24 hours
- follow infectious workup
Non-ischemic myocardial injury
- trend trops to peak, currently 1.94 - trend to peak
- Echo: pending
essential hypertension
- hold BP meds
hyperlipidemia
CAD, hx of ND
- continue rectal ASA
- resume Statin when enteral access available
type 2 DM
- continue SSI
- hold PO meds
- A1c: 6.0%
Colon cancer s/p resection 12/2021
L groin hernia on US
- OP evaluation
Severe cerebrovascular disease, greater than 70% bilateral internal carotid stenosis, occlusion of right vertebral, patent left vertebral
- if imaging confirms CVA, vascular evaluation
DVT ppx: SC Heparin
Code: Full code. No permanent measures such as trach/PEG
Total Critical Care Time 40 minutes. I was immediately available to the patient and staff. I personally examined, reviewed labs, diagnostic images/reports, interpretations, treatment plans, discussed patient care with other providers and family
or caregivers (if patient is unable to make decisions), entered orders as appropriate and documented the medical record.
Anticipated Discharge: > 48 hours
Subjective/Interval History
-
Date of Service: April 26, 2024
overnight decompensation with suspected aspiration (fever, increased WOB) resulting in intubation
remains with femoral temp pacer wire
Objective Data
-
Labs:
Laboratory Results
04/26/24 04/26/24 04/26/24
04:06 04:17 05:29
WBC 19.1 H 18.9 H
Hgb 16.3 15.6
Hct 46.6 45.4
Plt Count 219 207
HCO3 22.0
Sodium 142 141
Potassium 6.1 H* D 6.1 H*
Chloride 106 107
Carbon Dioxide 19 L 19 L
BUN 25 H 25 H
Creatinine 1.9 H 1.9 H
Glucose 173 H 172 H
Calcium 10.1 10.0
Total Bilirubin 1.6 H
AST 35
ALT 21
Alkaline Phosphatase 96
04/26/24 04/26/24 04/26/24
08:34 12:00 13:15
WBC
Hgb
Hct
Plt Count
HCO3
Sodium 141 Cancelled Pending
Potassium 3.9 D Cancelled Pending
Chloride 107 Cancelled
Carbon Dioxide 20 L Cancelled
BUN 24 H Cancelled
Creatinine 1.8 H Cancelled
Glucose 188 H Cancelled
Calcium 8.2 L D Cancelled
Total Bilirubin
AST
ALT
Alkaline Phosphatase
04/26/24 04/26/24 04/26/24
13:15 16:00 20:00
WBC
Hgb
Hct
Plt Count
HCO3
Sodium Cancelled Cancelled
Potassium Pending Cancelled Cancelled
Chloride Pending Cancelled Cancelled
Carbon Dioxide Pending Cancelled Cancelled
BUN Pending Cancelled Cancelled
Creatinine Pending Cancelled Cancelled
Glucose Pending Cancelled Cancelled
Calcium Pending Cancelled Cancelled
Total Bilirubin
AST
ALT
Alkaline Phosphatase
Vital Signs:
Vital Signs
Temp Pulse Resp BP Pulse Ox
101.8 F H 80 18 94/60 97
04/26/24 11:18 04/26/24 09:15 04/26/24 09:15 04/26/24 09:15 04/26/24 11:55
I&O
04/25/24 04/26/24 04/27/24
06:59 06:59 06:59
Intake Total 1824.9 / 2012.4 1315.0 / 1315.0
Output Total 140 / 150 95 / 95
Balance 1684.9 / 1862.4 1220.0 / 1220.0
Physical Exam
-
General: Intubated
HEENT: Normocephalic and Atraumatic
Respiratory: Rhonchi
Cardiac: Regular Rhythm
GI: Soft
Musculoskeletal: No Edema
Neuro: Sedated
Hematologic / Lymphatic: No Lymphadenopathy
Psych: Calm
Data Reviewed
-
Critical Care Time (in minutes): 40
Labs: Labs Reviewed by me
[2024-04-26 13:51] LABS: Blood Urea Nitrogen 30 mg/dl (9-20); Calcium 8.8 mg/dl (8.4-10.2); Carbon Dioxide 23 mmol/L (22-30); Chloride 101 mmol/L (98-107); Estimated Creatinine Clearance 27 ml/min; Glucose 176 mg/dl (70-99); Magnesium 1.6 mg/dl (1.6-2.3); Phosphorus 5.6 mg/dl (2.5-4.5); Potassium 4.4 mmol/L (3.5-5.1); Sodium 137 mmol/L (135-145)
[2024-04-26 14:10] LABS: Lactic Acid 2.9 mmol/L (0.7-2.0)
[2024-04-26] MEDS: TYLENOL ORAL SOLUTION 650 MG TUBE (14:45)
[2024-04-26] MEDS: MAGNESIUM SULFATE 50 IV (16:24)
[2024-04-26] MEDS: HEPARIN 5000 UNITS SC (16:24)
[2024-04-26 17:52] LABS: Glucose - Point of Care 186 mg/dl (70-99)
--- NOTE | 2024-04-26 19:13 | PTCARENOTE ---
Pt. fent and levo tapered per orders- see flow sheet. RT weaned FiO2 down to 50%; remains on current vent settings otherwise. Mag repleted- see MAR. Pt. remains in third degree AVB s/p interventional cards adjusting pacer settings; rates mid
40-50's, no back up pacer settings needed since setting change. Family updated @ bedside. Report given to next shift.
[2024-04-26] MEDS: LIPITOR 40 MG TUBE (19:36)
[2024-04-26] MEDS: OFIRMEV 100 IV (19:37)
[2024-04-26] MEDS: DUONEB 3 ML INH (19:56)
[2024-04-26] MEDS: SODIUM CHLORIDE 3% FOR INHALATION 1 VIAL INH (19:56)
--- NOTE | 2024-04-26 22:26 | PTCARENOTE ---
Patient intubated, ETT #8 at 23, vent AC 18/400/50%/5 at start of shift. RT decreased to 40% around 1999. Patient remains 98-99% pox. Unresponsive, remains on IV Bicarb at 75ml/hr, Fentanyl at 7.5ml/hr, and Levo, recently increased to 8mcg/30ml/hr
due to MAP <65. Patient with 3rd degree HB, bradycardic in the 40's. Patient with temporary pacer set at 40//5. Patient remains febrile, Ofirmev administered around 19:40, patient temp decreased from 103 at that time, to 102.4 currently. NGT
remains in place at 60 in the left nare, placement verified, flushed with 30cc water. Goel catheter remains intact, poor UO ranging from 0-15cc/hr, clear, yellow. Patient repositioned for pressure relief q2 hr. Will continue to monitor patient and
wean as able.
[2024-04-27] VITALS (94 sets, daily range): BP systolic 93–148; BP diastolic 46–72; BMI 24.9
[2024-04-27] MEDS: HEPARIN 5000 UNITS SC ×4 (00:12→23:56)
[2024-04-27] MEDS: NOVOLOG FLEXPEN-MODERATE RESISTANCE 1 UNITS SC ×2 (00:34→05:11)
[2024-04-27 00:45] LABS: Glucose - Point of Care 190 mg/dl (70-99)
[2024-04-27] MEDS: SUBLIMAZE 50 MCG IV ×2 (02:43→07:08)
[2024-04-27] MEDS: OFIRMEV 100 IV (04:27)
[2024-04-27 05:15] LABS: Glucose - Point of Care 179 mg/dl (70-99)
[2024-04-27] MEDS: SUBLIMAZE 100 IV (05:16)
[2024-04-27 05:32] LABS: Hematocrit 36.7 % (39.0-52.0); Hemoglobin 12.3 g/dL (13.0-18.0); Mean Corp Hgb Conc. 33.5 g/dL (33.0-37.0); Mean Corpuscular Volume 95.6 fL (80.0-94.0); Mean Platelet Volume 10.7 fL (7.4-10.4); Platelet Count 135 10^3/uL (130-400); Red Blood Cell Count 3.84 10^6/uL (4.70-6.10); Red Cell Dist. Width 14.1 % (11.5-14.5); White Blood Cell Count 10.9 10^3/uL (4.8-10.8)
[2024-04-27 05:46] LABS: Blood Urea Nitrogen 42 mg/dl (9-20); Calcium 8.4 mg/dl (8.4-10.2); Carbon Dioxide 29 mmol/L (22-30); Chloride 96 mmol/L (98-107); Estimated Creatinine Clearance 20 ml/min; Glucose 176 mg/dl (70-99); Magnesium 2.1 mg/dl (1.6-2.3); Potassium 4.2 mmol/L (3.5-5.1); Sodium 135 mmol/L (135-145); eGFR 18.84
[2024-04-27] MEDS: KEPPRA 500 MG IV ×2 (07:55→21:31)
[2024-04-27] MEDS: PROTONIX IV 40 MG IV (07:55)
[2024-04-27] MEDS: NSS (PRESERVATIVE FREE) 10 ML IV (07:55)
[2024-04-27] MEDS: ASPIRIN 300 MG RECTAL (07:56)
[2024-04-27] MEDS: DUONEB 3 ML INH ×3 (08:09→20:41)
[2024-04-27] MEDS: SODIUM CHLORIDE 3% FOR INHALATION 1 VIAL INH ×3 (08:09→20:41)
--- NOTE | 2024-04-27 08:18 | W.PN.INTV ---
Today's Communication / Plan
Recommendations
Follow-up CT head
Continue Keppra
Continue antibiotics and follow-up cultures
DuoNebs + nebulized 3% NS
Daily SAT/SBT
Defer ischemic cardiac workup to cardiology; depending on CT head, hopefully he will get permanent pacemaker tomorrow
Poor prognosis
Assessment
-
Assessment: 78-year-old male with a past medical history of hypertension, ischemic cardiomyopathy, mixed hyperlipidemia, DM type II, CAD s/p coronary stent to RCA, history of colon cancer, and history of melanoma who presented with slurred speech
and left facial droop. Per triage, patient was last seen normal at 1300 on 04/25/2024, however with additional history taking there was unclear timing of symptom onset. Apparently the patient was speaking with a friend at around 11:00 and the
patient was slurring his words and was lethargic at that time. After he was found sitting on the floor with facial drooping and slurring the words at around 2:45 PM, 911 was called and per EMS he was found to be in complete heart block. Initially
in the ER patient was bradycardic to 46, respiratory rate 17, BP 164/78, and saturating 93% on 4 L/min. Initial labs showed leukocytosis of 12.7, Hb 14.1, platelets 139, serum bicarbonate level 20, magnesium 1.6, troponin 0.018, TSH 3.96. Neurology
consulted and rectal ASA given - pt not deemed a TNK candidate as it was unclear when he was last known normal. CT head showed no acute intracranial hemorrhage. CTA head/neck showed complete occlusion of the right vertebral artery with severe
stenoses of the bilateral proximal internal carotid arteries. Of note there was retrograde blood flow into the right intracranial vertebral artery. Cardiology consulted and he was brought to the [facility] for a transvenous pacemaker which was
placed via the right common femoral vein. After the [facility] patient became tachypneic, restless with increased work of breathing and hypertensive. He was intubated and transferred to the ICU for further care. Licensed Acupuncturist services consulted for
additional management/recommendations.
Impression:
#Complete heart block s/p transvenous pacemaker
#Shock: Likely multifactorial from cardiogenic + septic - shock state now resolved as of this AM
#Acute decompensated heart failure � likely developed as a sequelae of bradyarrhythmia
#Suspected pneumonia (?Aspiration)
#Leukocytosis
#Facial droop with word slurring concerning for CVA, now with RUE twitching and right gaze preference
#Bilateral ICA stenosis with complete right vertebral artery occlusion (with retrograde flow into the right intracranial vertebral artery)
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
#Acute respiratory failure with hypoxia + hypercapnia now on mechanical ventilation
#MARYA with hyperkalemia
#Metabolic acidosis - resolved
#Hyperglycemia
#Hyperbilirubinemia
#Abnormal urinalysis with +1 leukocyte esterase and 30�40 urine WBC concerning for UTI
#Severe cervical spine osteoarthritis with disc�osteophyte complex at C4-C7 with cord compression and central canal stenosis
#Right groin bulging due to suspected hernia
Plan:
- Continue with mechanical ventilation with daily SAT/SBT if clinically indicated
- Titrate PEEP + FiO2 to maintain SpO2 >90-94%
- Trend blood gas daily and adjust vent as needed to keep goal pH 7.35-7.45
- Maintain plateau pressure <30
- Maintain goal RASS between 0 to -2
- Monitor ETT secretions, with deep suctioning as needed
- Chest PT as needed with nebulized 3% TID with DuoNebs TID
- prn nebulized bronchodilators - not currently bronchospastic
- Continue with TVP --> on AM of 04/26, rate was set at 80bpm at 20mA --> interventional cardiology with Dr. Simon later adjusted settings to 40 bpm and 10 mA, and the pt was able to maintain a heart rate >55 bpm intrinsically --> this AM the HR is
set back at 80 b/min at 10mA, and he is being paced almost 100% of the time
- Follow-up Lyme PCR testing (pending)
- TSH was WNL at 3.96 on 04/25/2024
- Goal HR>50-60
- Replete electrolytes with K>4, Mg>2
- Cardiology on board and recs appreciated
- Echo performed on 04/26/2024 shows reduced LVEF at 40% with mild concentric LVH with multiple wall motion abnormalities --> defer ischemic eval to cardiology
- Continue broad-spectrum antibiotic, currently on Unasyn
- Follow-up blood cultures collected 04/25/2024 + urine cultures collected 04/26 --> NGTD on cultures
- Check sputum Cx (collected today); urine antigens for legionella and Strep PNA both negative
- No recent hospitalizations and no history of MDRO or MRSA
- If patient has worsening hemodynamics then consider broadening antibiotics further to Vanco + cefepime vs Zosyn
- Treat fevers with tylenol, keeping <4g per 24hrs
- Now off vasopressors as of this AM
- Maintain MAP>65
- Continue PPI for stress ulcer ppx
- Trend serum HCO3 level; s/p bicarb gtt
- Neurology on board and recommendations appreciated
- Continue ASA, and can change from rectal aspirin to ASA through NGT
- Continue high intensity statin via NGT
- Continue with Keppra
- Check CT head today
- EEG performed on 04/26 showed no epileptiform features with minimal electrographic demonstration of cortical activity
- Plan for repeat EEG tomorrow
- Maintain euglycemia with goal BG 140-180; continue ISS q6hr
- Trend H/H and transfuse if needed to keep Hb>7g/dL; keep plt>50k given TVP in place
- DVT ppx: HSQ
IV Access: PIV and right femoral cordis
Continue ICU level care for this critically ill patient.
Critical care statement: A total of 38 minutes of critical care time was provided for this patient today. This includes management of unstable vital signs, evaluation of the patient at bedside, reviewing the patient's pertinent medical records
including radiographs, microbiology, laboratory evaluations, and discussion with primary team, consultants, pharmacy, nutrition, physical therapy, case management, charge nurse, critical care nursing, and respiratory therapy.
Subjective Dataa
Subjective Data
Date of Service:
Date of Service: April 27, 2024
Chief Complaint: Licensed Acupuncturist Follow Up
Subjective:
Pt seen and evaluated this AM. TVP remains in place, occasionally paced. Remains febrile. Cr worse this AM. Making urine at around 80cc/hr. Off sedation since 820AM, was on fentanyl 75mcg/hr prior to that. He is opening his eyes and blinking
spontaneously, but not following commands. This AM HR 44, BP 113/53 and saturating 97%. Ventilated on AC/CMV at: 400/18/40%/5, with PIP 56acM0P, VTe 406cc and breathing at 18breaths/min. Off pressors since 630AM.
Review of Systems
General: Unobtainable - Pat Unresp
Objective Data
Data Reviewed
Vital Signs / I&O / Oxygen:
Vital Signs
Temp Pulse Resp BP Pulse Ox
101.5 F H 41 18 126/53 97
04/27/24 07:30 04/27/24 08:34 04/27/24 08:34 04/27/24 06:00 04/27/24 08:34
Intake and Output
04/26/24 04/27/24 04/28/24
06:59 06:59 06:59
Intake Total 1824.9 / 2011.4 3080.0 / 3087.5 45.0 / 45.0
Output Total 140 / 150 440 / 450 20 / 20
Balance 1684.9 / 1862.4 2640.0 / 2637.5 25.0 / 25.0
SaO2 [A/C] 96
SaO2 97
Nasal Cannula flow liters per 4
minute
Physical Exam
General: Respiratory Distress (negative), Chills (negative) and Sweats (negative)
HEENT: Normocephalic, Anicteric and Other (Rightward eye gaze preference)
Cardiovascular: S1-S2 and Peripheral Edema (negative)
Respiratory: Wheeze (negative), Crackles (Bilaterally), Rhonchi (Bilaterally), Non-Labored Respirations and ET Tube (Mechanical breath sounds heard bilaterally)
GI: Soft, Non Distended, Non Tender and Normal Bowel Sounds
Neurology: Tremors (Occasional tremors seen in right upper extremity), Unresponsive and Other (Pupils 2 mm bilaterally and sluggish with absent corneal reflexes, albeit this was happening during tremor in right upper extremity/?seizure)
Skin: Warm, Dry, Cyanosis (negative) and Jaundice (negative)
Labs/Micro/Reports
Lab Data
04/27/24 05:05
04/27/24 05:05
Microbiology
04/26/24 08:34 Urine Urine Culture - Final
NO GROWTH
04/27/24 01:45 Urine Legionella Urinary Antigen - Final
Negative for Legionella pneumophila Serogroup 1 antigen.
A negative result does not rule out the possiblity of
Legionella infection due to other serogroups or species of
Legionella. Clinical correlation is recommended.
04/27/24 01:45 Urine Streptococcus pneumoniae Antigen (M - Final
Negative for Streptococcus pneumoniae antigen.
A negative result does not exclude infection with
Streptococcus pneumoniae. Clinical correlation is
recommended.
04/25/24 21:41 Blood/Venous Blood Culture - Preliminary
No Growth in 24 hours- Final report to follow
04/25/24 21:41 Blood/Venous Blood Culture - Preliminary
No Growth in 24 hours- Final report to follow
04/25/24 21:27 Nasal Swab Influenza Types A & B (JAYLA) - Final
Negative for Influenza A & B, NAAT
Negative results must be combined with clinical observations
and patient history.
Nucleic Acid Amplification test (NAAT)performed on the
[employer] platform.
--- NOTE | 2024-04-27 08:30 | PTCARENOTE ---
Received pt @ change of shift intubated/sedated/restrained w b/l soft limb/4 rails- see flow sheet. Unresponsive; pupils 2mm/sluggish; weak cough/gag reflex; corneals present. Third degree heart block requiring back up pacing from temp pacer set
40/10/5 via R fem cordis. SpO2 99% on vent settings AC18/400/.40/+5. Auscultated coarse breath sounds w exp wheeze and crackles @ L base. Mod amt thick jack/brown secretions from ett. Hypoactive BS, abd soft/round. Large L inguinal hernia. L nare
NGT to LIS draining small-mod amt green output. Thermistor harris in place draining clear/yellow urine; oliguric w output 5-20mL/hr. R fem cordis w fent gtt- see flow sheet; levo and bicarb gtt off overnight per nightshift RN. Daughter @ bedside,
updated. Safe environment maintained.
--- NOTE | 2024-04-27 08:45 | W.CON.NEPH ---
Consultation
-
Date/Time Consultation Requested: 04/27/2024 8:00 AM
Date/Time Consultation Performed: 04/27/2024 845 8
Requesting Provider: Dr. Huerta
Performing Provider: Dr. Sorensen
Reason for Consultation: Acute kidney injury
Medical History
-
Chief Complaint: Acute kidney injury
History of Present Illness:
The patient is an 78-year-old male with a past medical history of diabetes maintained on metformin and Jardiance. He has a history of dyslipidemia maintained on statin therapy. He has a history of hypertension maintained on lisinopril. The
patient has an underlying chronic kidney disease as noted by a creatinine of 1.4 from 07/31/2023.He presented to [facility] ED for evaluation of change in mental status on 04/25/24. Patient was found sitting on the floor with facial
drooping and slurring of words . EMS was called and transported patient to ER where he was found to be in complete heart block. He underwent temporary transvenous pacemaker via right common femoral vein approach on April 25, 2024. Postprocedure
he became very short of breath and restless and was transferred to ICU and underwent eventual intubation for CHF versus aspiration pneumonia. Pressor support was provided for hemodynamic instability in setting of suspected cardiogenic shock.
Echocardiogram was performed on 04/26/2024 which noted ejection fraction 40% with multiple LAD distribution wall motion abnormalities. on presentation to the hospital his creatinine was 1.4. It is now escalated to 3.2 following his admission and
nephrology was asked to see the patient.
Past Medical History
Hx of colon CA with colon resection in 2021
Bilateral carotid stenosis
Moderate mediastinal lymph and adenopathy
CAD with RCA stent
ICMO
HTN
DM
Appendectomy
Skin melanoma
Social History
Tobacco: Non-Smoker
Alcohol: None
Family History
no CKD
Family History: Not Pertinent
Allergies / Home Medications
Allergy/AdvReac Type Severity Reaction Status Date / Time
shellfish derived Allergy Itching Verified 04/25/24 15:20
shrimp Allergy Itching Verified 04/25/24 15:20
�Medication �Instructions �Recorded �Confirmed �Type
atorvastatin 40 mg tablet 40 mg PO DAILY High cholesterol 07/12/20 04/26/24 History
metformin 500 mg tablet 1,000 mg PO BID@0800,1700 Diabetes 07/12/20 04/26/24 History
aspirin 81 mg tablet,delayed 81 mg PO DAILY Blood clot 12/17/21 01/22/22 History
release prevention/tx
cholecalciferol (vitamin D3) 25 25 mcg PO DAILY Supplement 12/17/21 01/22/22 History
mcg (1,000 unit) tablet
lisinopril 20 mg tablet 20 mg PO DAILY #90 tabs 12/24/21 04/26/24 Rx
docusate sodium 100 mg capsule 100 mg PO DAILY #30 caps 03/15/22 Rx
(Colace)
empagliflozin 10 mg tablet 10 mg PO DAILY 04/25/24 04/26/24 History
(Jardiance)
Review of Systems
-
Unable to obtain full review of systems at this time due to: Acuity and Patient Intubation
History Source: Patient
All other systems: Negative unless noted
Physical Exam
Vital Signs
Vital Signs
Temp Pulse Resp BP Pulse Ox
101.5 F H 41 18 126/53 97
04/27/24 07:30 04/27/24 08:34 04/27/24 08:34 04/27/24 06:00 04/27/24 08:34
Lab Results
04/27/24 05:05
04/27/24 05:05
WBC 10.9 10^3/uL (4.8-10.8) H 04/27/24 05:05
RBC 3.84 10^6/uL (4.70-6.10) L 04/27/24 05:05
Hgb 12.3 g/dL (13.0-18.0) L D 04/27/24 05:05
Hct 36.7 % (39.0-52.0) L 04/27/24 05:05
Plt Count 135 10^3/uL (130-400) D 04/27/24 05:05
Sodium 135 mmol/L (135-145) 04/27/24 05:05
Potassium 4.2 mmol/L (3.5-5.1) 04/27/24 05:05
Chloride 96 mmol/L (98-107) L 04/27/24 05:05
Carbon Dioxide 29 mmol/L (22-30) 04/27/24 05:05
BUN 42 mg/dl (9-20) H 04/27/24 05:05
Creatinine 3.2 mg/dL (0.7-1.3) H 04/27/24 05:05
eGFR 18.84 04/27/24 05:05
Glucose 176 mg/dl (70-99) H 04/27/24 05:05
Calcium 8.4 mg/dl (8.4-10.2) 04/27/24 05:05
Phosphorus 5.6 mg/dl (2.5-4.5) H 04/26/24 13:15
Hpt-Q-Nsniitxvhad Pept 6020 pg/ml 04/25/24 21:03
Albumin 4.2 g/dl (3.5-5.0) 04/26/24 04:17
Physical Exam
General: Intubated sedated
HEENT: NGT right nare, ET tube
Respiratory: Coarse to auscultation bilaterally with normal lung exersion on ventilator
Cardiac: S1/S2 and Regular bradycardic
Breast: Deferred by me
Abdomen: Soft, Nontender, Nondistended, decreased Bowel Sounds and No Hepatosplenomegaly
Rectal: Deferred by Provider
Genito-urinary: No Costovertebral Tenderness:Goel
Extremities: No Clubbing, No Cyanosis and No Edema
Skin: No Rash or open lesions
Neuro: Unobtainable as patient is on vent and sedated on fentanyl
Hematologic/Lymphatic: No Cervical Lymphadenopathy, No Submandibular Lymphadenopathy and No Supraclavicular Lymphadenopathy
Psych: Unobtainable
Vascular: plus 1 pedal and radial pulses
Data Reviewed
-
Radiology: Image Personally Visualized and interpreted (Chest x-ray from 04/26/2023 reviewed:interstitial edema)
Assessment/Plan
-
Impression:
MARYA
Complete heart block s/p transvenous pacemaker
Shock: Likely multifactorial from cardiogenic + septic
Acute decompensated heart failure � likely developed as a sequelae of bradyarrhythmia
Suspected pneumonia (?Aspiration)
Leukocytosis
Facial droop with word slurring concerning for TIA versus CVA
Bilateral ICA stenosis with complete right vertebral artery occlusion (with retrograde flow into the right intracranial vertebral artery)
Recurrent fevers - due to sepsis +/- neurogenic
Acute respiratory failure with hypoxia + hypercapnia now on mechanical ventilation
Hyperbilirubinemia
Severe cervical spine osteoarthritis with disc�osteophyte complex at C4-C7 with cord compression and central canal stenosis
Right groin bulging due to suspected hernia
Plan
MARYA
-Likely prerenally mediated in setting of hemodynamic instability with complete heart block on presentation
-Maintain pressor support to keep MAP 65 or greater
-Maintain Goel cath
-No need for acute dialysis at this moment
-Discussed case with daughter at bedside
-Patient critically ill with worsening renal failure in setting of vent dependent respiratory failure
-Would attempt initiation of diuresis with 80 mg IV given rising weights
Total Time Spent with Patient (in minutes): 40 minutes critical care time spent with patient
[2024-04-27 10:22] LABS: Urine Sodium 12 mmol/L (30-90)
--- NOTE | 2024-04-27 11:36 | W.PN.CARDCBS ---
Today's Communication / Plan
-
Continue temporary pacemaker
Discussed with family
Agree with Lasix
Impression / Plan
-
PCP: Onur Penaloza MD
Cardiology: Bronson Nunez MD
Impression:
Acute encephalopathy, unclear etiology at this time, concern for CVA
Fever, negative procalcitonin, negative COVID and flu
Acute heart failure, EF unknown
Shock, clinical sepsis versus cardiogenic versus SIRS
Complete heart block, temporary wire placed 07/23/2024
CAD status post PCI 2015
Ischemic cardiomyopathy with recovered EF
Hypertension
Dyslipidemia
Diabetes mellitus type 2
Colon cancer s/p resection 12/2021
MARYA
Severe cerebrovascular disease, greater than 70% bilateral internal carotid stenosis, occlusion of right vertebral, patent left vertebral
Mediastinal lymphadenopathy
Detectable troponin 0.018
Cath 07/2015: Promus stent of RCA. There was moderate disease of LAD and diagonal and ejection fraction was 45%.
Cerebrovascular CTA: Bilateral greater than 70% stenosis, occluded left vertebral
CT of chest abdomen pelvis: No metastatic disease
Echo 07/04/2015: EF 45% with mild inferior hypokinesis.
Echo 03/09/2021: EF 55%, no regional wall motion abnormality, mild MR, mild TR, trivial pericardial effusion
Echo 04/26/2024: Mild LVH with LAD distribution wall motion abnormalities, EF 40%'s, calcified laminar apical thrombus not excluded, mild MR, MAC, thickened leaflets, normal left atrium, aortic sclerosis, normal right heart, pacing wire, pleural
effusion
Plan:
Still with complete AV block, pacer had been set at 40, probably with low output state, with repositioning and rate up to 80 patient looks better.
Still with clinical septic/cardiogenic shock. However not pressor dependent at present but with multisystem organ failure.
Agree with furosemide per nephrology.
At this point, he is not stable enough for permanent pacemaker placement.
If neurologic status improves, if respiratory status improves and renal failure stabilizes permanent pacemaker placement would make sense. If not, may need to consider goals of care.
Echo suggest that he could have had an LAD distribution cardiac event. If stabilizes, we will need to address this, would likely best be suited for cardiac catheterization
Prognosis is guarded. Discussed with family.
Clinical summary: 78-year-old man, active, exercises, history of non-STEMI in 2016, Promus stent to RCA with moderate LAD and diagonal disease, EF 45%, history of noncompliance, diabetes, hypertension, hyperlipidemia, colon cancer resected 2021,
found confused on floor with complete heart block on February 22. Shortly after admission fever, lactic acidosis, respiratory failure requiring intubation, temporary pacing wire placed 04/25/2024.
Progress Note - Javascript Engineer
Subjective
Date of Service: April 27, 2024:
Propofol, norepinephrine now off, fentanyl off, patient arouses to noxious stimuli
Medications: Propofol, norepinephrine, Keppra 500 every 12, subcu heparin, pantoprazole 40 IV daily, Unasyn, atorvastatin, albuterol, aspirin 81 mg a day
Intermittent loss of capture with temporary wire, with slight advancement of wire and retaping, threshold 1-1.5 mV and stable
110/51, pulse was 42, respirate 18, temp is 38.6, intake and output +1.7 L, weight is 81.1 kg, if accurate weight is up 5.7 kg intubated, NG tube, daughter, sister, (current versus former) at bedside. Arouses when stimulated does not open
eyes to verbal stimuli, lungs diminished breath sounds regular rate and rhythm no obvious murmurs, abdomen benign, JVD hard to assess, not much edema
White count 10.9, hemoglobin 12.3, 135, BUN/creatinine 42 and 3.2, t, creatinine had been 1.5 on admission, 2.3 yesterday troponin 2.08
chest x-ray with pacing lead advanced, vascular congestion,
Klebsiella in urine
Objective
Labs:
04/27/24 05:05
04/27/24 05:05
Labs
Hgb 12.3 g/dL (13.0-18.0) L D 04/27/24 05:05
Hct 36.7 % (39.0-52.0) L 04/27/24 05:05
Plt Count 135 10^3/uL (130-400) D 04/27/24 05:05
PT 16.0 Sec (11.4-14.6) H 04/25/24 15:43
INR 1.25 04/25/24 15:43
APTT 43.7 Sec (23.4-35.0) H 04/25/24 15:43
Sodium 135 mmol/L (135-145) 04/27/24 05:05
Potassium 4.2 mmol/L (3.5-5.1) 04/27/24 05:05
BUN 42 mg/dl (9-20) H 04/27/24 05:05
Creatinine 3.2 mg/dL (0.7-1.3) H 04/27/24 05:05
Glucose 176 mg/dl (70-99) H 04/27/24 05:05
Troponins
04/25/24 04/26/24 04/26/24
15:43 13:15 17:43
Troponin I 0.018 1.940 H* 2.100 H*
04/27/24 04/27/24
00:24 05:05
Troponin I 2.320 H* 2.080 H*
Vital Signs and I&O:
Vital Signs
Temp Pulse Resp BP Pulse Ox
38.6 C H 42 18 110/51 97
04/27/24 07:30 04/27/24 10:15 04/27/24 10:15 04/27/24 10:15 04/27/24 10:34
Vital Signs
Temp Pulse Resp BP Pulse Ox
38.6 C H 42 18 110/51 97
04/27/24 07:30 04/27/24 10:15 04/27/24 10:15 04/27/24 10:15 04/27/24 10:34
Intake & Output
04/25/24 04/26/24 04/27/24 04/28/24
07:59 07:59 07:59 07:59
Intake Total 2011.4 / 4.9 2900.0 / 2937.5 37.5 / 37.5
Output Total 150 / 165 440 / 450 30 / 30
Balance 1862.4 / 2049.9 2460.0 / 2487.5 7.5 / 7.5
Physical Exam
Physical Exam
See above
[2024-04-27] MEDS: LASIX 80 MG IV (11:52)
[2024-04-27] MEDS: NOVOLOG FLEXPEN-MODERATE RESISTANCE SC ×2 (12:10→17:11)
[2024-04-27 12:25] LABS: Glucose - Point of Care 130 mg/dl (70-99)
--- NOTE | 2024-04-27 12:30 | PTCARENOTE ---
Cardiology, Dr. NATTY Cedeno to bedside to assess patient. MD changed temp pacer settings to 80/10/5 @ bedside, confirmed w order change per MD. SAT initiated @ 0822 w fent gtt off- see flow sheet. Pt. opens eyes/blinks spont but does not track or
follow commands. Appears able to move R side; tremors w care; L side appears flaccid. Pupils remain 2mm/sluggish b/l. Remains off fent/levo gtts. RT attempted to switch settings to CPAP wean, pt. immediately apneic and RT switched back to
original vent settings AC18/400/.40/+5. Family @ bedside, continuously updated.
[2024-04-27] MEDS: UNASYN IV ×2 (12:37→21:35)
--- NOTE | 2024-04-27 13:15 | W.PN.NEURO.1 ---
Today's Communication / Plan
-
Head CT if possible but pacemaker wire position dependent, risk to move patient
repeat EEG tomorrow after fentanyl out of his system
Neuro Assessment/Plan
Assessment
CTA head/neck right vertebral origin occluded; left vertebral patent; bilateral proximal internal carotid ~70% stenosis, severe intracranial ICA stenosis bilaterally
EEG showing low amplitude beta activity, which could be the result of anesthetics.
78 year old man, concern for cerebral hypoperfusion, in the setting of septic/cardiac shock, bilateral carotid stenosis 70%. suspicion is for watershed infarcts bilaterally. the preservation of brainstem reflexes does not help me prognosticate, as
the posterior circulation is relatively patent supplied by the left vertebral. the concern is the anterior circulation.
can't get MRI with temp pacemaker; too sick right now for permanent pacemaker and we would like to avoid placing a permanent pacemaker only to find that he has bilateral watershed strokes.
Head CT if possible but pacemaker wire position dependent, risk to move patient, and it would need to be at least a moderate sized stroke to see on head CT
repeat EEG tomorrow after fentanyl out of his system, however it would need to be catastrophic before I could prognose on EEG
Plan
Head CT if possible but pacemaker wire position dependent, risk to move patient
repeat EEG tomorrow after fentanyl out of his system
Subjective/Objective
Subjective Data
Date of Service: April 27, 2024
seen this morning
patient on minimal sedation, not waking up
questions regarding patient's neurological prognosis in the setting of septic/cardiac shock, bilateral carotid stenosis 70%, concern for cerebral hypoperfusion.
patient has temp pacemaker wire; it is not MRI compatible; needs permanent pacemaker before MRI can be done however decision for how aggressive the treatment depending on neurological prognosis.
Objective Data
Vital Signs
Temp Pulse Resp BP Pulse Ox
38.6 C H 80 18 117/58 99
04/27/24 11:30 04/27/24 12:15 04/27/24 12:15 04/27/24 12:15 04/27/24 12:15
Lab Results
04/27/24 05:05
04/27/24 05:05
PT 16.0 Sec (11.4-14.6) H 04/25/24 15:43
INR 1.25 04/25/24 15:43
APTT 43.7 Sec (23.4-35.0) H 04/25/24 15:43
Sodium 135 mmol/L (135-145) 04/27/24 05:05
Potassium 4.2 mmol/L (3.5-5.1) 04/27/24 05:05
BUN 42 mg/dl (9-20) H 04/27/24 05:05
Glucose 176 mg/dl (70-99) H 04/27/24 05:05
Calcium 8.4 mg/dl (8.4-10.2) 04/27/24 05:05
Phosphorus 5.6 mg/dl (2.5-4.5) H 04/26/24 13:15
Zpy-G-Ylaqflvppxy Pept 6020 pg/ml 04/25/24 21:03
LDL Cholesterol, Calc 31 mg/dl 04/26/24 04:17
Patient Allergies
shellfish derived Allergy (Verified 04/25/24 15:20)
Itching
shrimp Allergy (Verified 04/25/24 15:20)
Itching
Physical Exam
-
minimally sedated with fentanyl
coma
pupils 2mm sluggish, corneal reflex present, cough reflex present
no response noxious stim x4 limbs
--- NOTE | 2024-04-27 13:46 | W.PN.HOSP.TC ---
Today's Communication/Plan
-
continue Abx, wean vent/pressors/sedation
continue temp pacing
follow UOP and labs
Assessment / Plan
Assessment / Plan
Assessment:
Complete heart block
- s/p temp pacer
- management per Cardiology
VDRF
- suspected related to acute aspiration pneumonia vs CHF
- vent/sedation per ICU team
Shock, likely mixed state (cardiogenic, septic)
- currently off pressors
- continue Unasyn day 2 for concern of aspiration pneumonia
MARYA
Acute hyperkalemia
- suspected related to shock state (pre-renal mediated from CHB)
- continue Goel, monitor UOP
- s/p Bicarbonate IVF
- s/p Lokelma for hyperK+
- IV Lasix per Nephrology
- hold nephrotoxins
Acute HFrEF
- Echo: 1. Mild cLVH with multiple LAD distribution wall motion abnormalities as described below, EF 40%. A calcified laminar apical thrombus is not excluded. Thickened mitral leaflets, mitral annular calcification, mild mitral
regurgitation and normal left atrium. Aortic sclerosis with without apparent stenosis or regurgitation. Normal right heart with pacing wire identified, tricuspid valve gradient is 12 mmHg. Pleural effusion is present. The IVC does not collapse.
- IV Lasix per Nephrology
Encephalopathy, likely related to critical illness, but cannot rule out CVA
- could be related to low flow state with CHB and bilateral carotid stenosis
- on Keppra per Neurology
- Neuro planning EEG tomorrow and possible CT head
- await MRI brain when feasible
- follow infectious workup
Non-ischemic myocardial injury
- trend trops to peak, currently 1.94 - trend to peak
- Echo: as above
essential hypertension
- hold BP meds
hyperlipidemia
CAD, hx of SC
- continue rectal ASA
- resume Statin when enteral access available
type 2 DM
- continue SSI
- hold PO meds
- A1c: 6.0%
Colon cancer s/p resection 12/2021
L groin hernia on US
- OP evaluation
Severe cerebrovascular disease, greater than 70% bilateral internal carotid stenosis, occlusion of right vertebral, patent left vertebral
- if imaging confirms CVA, vascular evaluation
DVT ppx: SC Heparin
Code: Full code. No permanent measures such as trach/PEG
Total Critical Care Time 40 minutes. I was immediately available to the patient and staff. I personally examined, reviewed labs, diagnostic images/reports, interpretations, treatment plans, discussed patient care with other providers and family
or caregivers (if patient is unable to make decisions), entered orders as appropriate and documented the medical record.
Anticipated Discharge: > 48 hours
Subjective/Interval History
-
Date of Service: April 27, 2024
weaned off pressors
FIO2 down to 40%
sedation off
Objective Data
-
Labs:
Laboratory Results
04/27/24 04/27/24
03:14 05:05
WBC 10.9 H
Hgb 12.3 L D
Hct 36.7 L
Plt Count 135 D
Sodium Cancelled 135
Potassium Cancelled 4.2
Chloride Cancelled 96 L
Carbon Dioxide Cancelled 29
BUN Cancelled 42 H
Creatinine Cancelled 3.2 H
Glucose Cancelled 176 H
Calcium Cancelled 8.4
Vital Signs:
Vital Signs
Temp Pulse Resp BP Pulse Ox
101.5 F H 80 18 117/58 99
04/27/24 11:30 04/27/24 12:15 04/27/24 12:15 04/27/24 12:15 04/27/24 13:39
I&O
04/26/24 04/27/24 04/28/24
06:59 06:59 06:59
Intake Total 1824.9 / 2011.4 3080.0 / 3087.5 195.0 / 195.0
Output Total 140 / 150 440 / 450 150 / 150
Balance 1684.9 / 1862.4 2640.0 / 2637.5 45 / 45.0
Physical Exam
-
General: No Apparent Distress and Intubated
HEENT: Normocephalic and Atraumatic
Respiratory: Negative Wheezes or Rales
Cardiac: Regular Rhythm and S1/S2
GI: Soft and Nontender
Genito-urinary: Goel
Musculoskeletal: Edema, Right Lower Extrem and Edema, Left Lower Extrem
Neuro: AO x 3
Hematologic / Lymphatic: No Lymphadenopathy
Psych: Calm
Data Reviewed
-
Critical Care Time (in minutes): 41
Labs: Labs Reviewed by me
--- NOTE | 2024-04-27 16:19 | PTCARENOTE ---
Pt. transported to CT scan and back with RN, RT, and ICU physician, Dr. Lane. Head CT obtained and pt. transported back to unit by medical team; no events on transport. Neurology to bedside to discuss scan results w daughter. Pt. repositioned
per protocol. Safe environment maintained.
[2024-04-27] MEDS: LIPITOR 40 MG TUBE (17:00)
[2024-04-27] MEDS: TYLENOL ORAL SOLUTION 650 MG TUBE ×2 (17:00→23:56)
--- NOTE | 2024-04-27 17:05 | PTCARENOTE ---
Dr. Lane to bedside; goals of care discussed. Pt. made DNR per orders. Plan to continue supportive care and gather family; care ongoing. Safe environment maintained.
[2024-04-27 17:22] LABS: Glucose - Point of Care 124 mg/dl (70-99)
--- NOTE | 2024-04-27 18:59 | W.PN.UPDATE ---
Update Note
Progress Note Update
Patient had his CT head later this afternoon showing a large area of evolving nonhemorrhagic infarction in the right middle cerebral artery territory. Neurology discussed these results with the family and the daughter would like the patient to be
made DNR and will consider withdrawing care tomorrow after additional data is obtained (EEG). Would advise to the nursing staff to minimize sedation overnight as tolerated. Continue with aspirin + statin. Unlikely to use Plavix given the large
ischemic stroke region with risk of hemorrhagic transformation - defer this decision ultimately to neuro.
--- NOTE | 2024-04-27 20:00 | PTCARENOTE ---
rec`d pt at 1900 intubated. pt does not follow commands. occasional movement of rt arm. left arm flaccid. restraints. +cough. =pupils. does not track. involuntary eye movement. 100% V paced. settings 80/10/5. doppler pulses. continuous fevers. #8ETT
@23. settings: 18/400/40%/5 of peep. coarse lung sounds. lots of secreations. POX99%. round abdomen. left groin hernia. left nare NGT @60 putting out green bilius. harris draining clint urine. rt leg brace. skin tear rt hand. cordis right fem. rt
subQ chest port. safe environment maintained.
[2024-04-28] VITALS (46 sets, daily range): BP systolic 99–139; BP diastolic 44–87; BMI 25.3
[2024-04-28 00:06] LABS: Glucose - Point of Care 144 mg/dl (70-99)
[2024-04-28] MEDS: NOVOLOG FLEXPEN-MODERATE RESISTANCE SC ×2 (00:07→12:49)
[2024-04-28 04:26] LABS: Hematocrit 35.7 % (39.0-52.0); Hemoglobin 11.9 g/dL (13.0-18.0); Mean Corp Hgb Conc. 33.3 g/dL (33.0-37.0); Mean Corpuscular Hgb 32.1 pg (27.0-31.0); Mean Corpuscular Volume 96.2 fL (80.0-94.0); Mean Platelet Volume 11.3 fL (7.4-10.4); Platelet Count 112 10^3/uL (130-400); Red Blood Cell Count 3.71 10^6/uL (4.70-6.10); Red Cell Dist. Width 13.4 % (11.5-14.5); White Blood Cell Count 6.8 10^3/uL (4.8-10.8)
[2024-04-28 04:48] LABS: ALT (SGPT) 17 U/L (0-50); AST (SGOT) 24 U/L (17-59); Albumin 2.9 g/dl (3.5-5.0); Alkaline Phosphatase 82 U/L (38-126); Blood Urea Nitrogen 54 mg/dl (9-20); Calcium 8.6 mg/dl (8.4-10.2); Carbon Dioxide 30 mmol/L (22-30); Chloride 99 mmol/L (98-107); Direct Bilirubin 0.7 mg/dl (0.0-0.4); Estimated Creatinine Clearance 17 ml/min; Glucose 129 mg/dl (70-99); Potassium 3.7 mmol/L (3.5-5.1); Sodium 139 mmol/L (135-145); Total Bilirubin 1.5 mg/dl (0.2-1.3); Total Protein 5.2 g/dl (6.3-8.2); Triglycerides 138 mg/dl (10-149); eGFR 16.36
[2024-04-28] MEDS: TYLENOL ORAL SOLUTION 650 MG TUBE (05:39)
[2024-04-28] MEDS: NOVOLOG FLEXPEN-MODERATE RESISTANCE 1 UNITS SC (05:48)
[2024-04-28 05:59] LABS: Glucose - Point of Care 150 mg/dl (70-99)
[2024-04-28 07:48] LABS: Lyme Disease DNA by PCR Not Detected; Lyme Source Serum
[2024-04-28] MEDS: DUONEB 3 ML INH ×2 (07:48→13:47)
[2024-04-28] MEDS: SODIUM CHLORIDE 3% FOR INHALATION 1 VIAL INH ×2 (07:49→13:47)
--- NOTE | 2024-04-28 08:03 | W.PN.CARDCBS ---
Today's Communication / Plan
-
Patient with multiorgan system failure. Agree with discussions regarding comfort care.
Continue temporary pacemaker for now at 80bpm
Hold off on permanent pacemaker.
CT of the head with evolving stroke.
Creatinine continues to rise to 3.6.
Prognosis very poor.
Impression / Plan
-
PCP: Onur Penaloza MD
Cardiology: Bronson Nunez MD
Impression:
Acute encephalopathy, unclear etiology at this time, concern for CVA
Fever, negative procalcitonin, negative COVID and flu
Acute heart failure, EF unknown
Shock, clinical sepsis versus cardiogenic versus SIRS
Complete heart block, temporary wire placed 07/23/2024
CAD status post PCI 2015
Ischemic cardiomyopathy with recovered EF
Hypertension
Dyslipidemia
Diabetes mellitus type 2
Colon cancer s/p resection 12/2021
MARYA
Severe cerebrovascular disease, greater than 70% bilateral internal carotid stenosis, occlusion of right vertebral, patent left vertebral
Mediastinal lymphadenopathy
Detectable troponin 0.018
Cath 07/2015: Promus stent of RCA. There was moderate disease of LAD and diagonal and ejection fraction was 45%.
Cerebrovascular CTA: Bilateral greater than 70% stenosis, occluded left vertebral
CT of chest abdomen pelvis: No metastatic disease
Echo 07/04/2015: EF 45% with mild inferior hypokinesis.
Echo 03/09/2021: EF 55%, no regional wall motion abnormality, mild MR, mild TR, trivial pericardial effusion
Echo 04/26/2024: Mild LVH with LAD distribution wall motion abnormalities, EF 40%'s, calcified laminar apical thrombus not excluded, mild MR, MAC, thickened leaflets, normal left atrium, aortic sclerosis, normal right heart, pacing wire, pleural
effusion
Plan:
CT with continued evidence of evolving right MCA stroke.
Family considering comfort care. Will continue temporary pacer wire for now at 80 bpm. Pacemaker has excellent capture with a stable blood pressure.
Would hold off on permanent pacemaker for now. Agree with discussions regarding comfort care/DNR/hospice
Continue aspirin and Caleb-Synephrine as needed.
Creatinine continues to rise with progressive acute renal failure and is now up to 3.6. Weight continues to climb with likely multiorgan system failure.
Echo suggest that he could have had an LAD distribution cardiac event. If stabilizes, we will need to address this, would likely best be suited for cardiac catheterization. For now we will treat conservatively until goals of care have been
discussed.
CC time 31 min
Clinical summary: 78-year-old man, active, exercises, history of non-STEMI in 2016, Promus stent to RCA with moderate LAD and diagonal disease, EF 45%, history of noncompliance, diabetes, hypertension, hyperlipidemia, colon cancer resected 2021,
found confused on floor with complete heart block on February 22. Shortly after admission fever, lactic acidosis, respiratory failure requiring intubation, temporary pacing wire placed 04/25/2024.
Progress Note - Automotive Service Writer
Subjective
Date of Service: April 28, 2024
Events of the night noted. Still having fevers. CT with shower emboli with CVA.
Objective
Labs:
04/28/24 03:52
04/28/24 03:52
Labs
Hgb 11.9 g/dL (13.0-18.0) L 04/28/24 03:52
Hct 35.7 % (39.0-52.0) L 04/28/24 03:52
Plt Count 112 10^3/uL (130-400) L 04/28/24 03:52
PT 16.0 Sec (11.4-14.6) H 04/25/24 15:43
INR 1.25 04/25/24 15:43
APTT 43.7 Sec (23.4-35.0) H 04/25/24 15:43
Sodium 139 mmol/L (135-145) 04/28/24 03:52
Potassium 3.7 mmol/L (3.5-5.1) 04/28/24 03:52
BUN 54 mg/dl (9-20) H 04/28/24 03:52
Creatinine 3.6 mg/dL (0.7-1.3) H 04/28/24 03:52
Glucose 129 mg/dl (70-99) H 04/28/24 03:52
Troponins
04/25/24 04/26/24 04/26/24
15:43 13:15 17:43
Troponin I 0.018 1.940 H* 2.100 H*
04/27/24 04/27/24
00:24 05:05
Troponin I 2.320 H* 2.080 H*
Vital Signs and I&O:
Vital Signs
Temp Pulse Resp BP Pulse Ox
102 F H 80 18 137/75 97
04/28/24 00:00 04/28/24 07:53 04/28/24 07:53 04/28/24 04:45 04/28/24 07:53
Vital Signs
Temp Pulse Resp BP Pulse Ox
102 F H 80 18 137/75 97
04/28/24 00:00 04/28/24 07:53 04/28/24 07:53 04/28/24 04:45 04/28/24 07:53
Intake & Output
04/26/24 04/27/24 04/28/24 04/29/24
06:59 06:59 06:59 06:59
Intake Total 1824.9 / 2011.4 3080.0 / 3087.5 415.0 / 415.0
Output Total 140 / 150 440 / 450 1335.0 / 1335.0
Balance 1684.9 / 1862.4 2640.0 / 2637.5 -920.0 / -920.0
Physical Exam
Physical Exam
GEN: No distress, intubated/sedated
HEENT: supple, anicteric, mmm
LUNGS: scatt rhonchi
CV: Reg, S1/S2, 03/08 syst LSB, no gallop
ABD: soft, BS+, NT/ND
EXT: R fem TV pacer
NEURO: Gross non-focal
SKIN: No rash
--- NOTE | 2024-04-28 08:20 | W.PN.INTV ---
Today's Communication / Plan
Recommendations
CT head from yesterday showed large area of likely evolving ischemic infarction in the right MCA territory - family is ready to withdraw care today
Until we are ready to withdrawal, continue with mechanical ventilation
Continue Keppra
Continue antibiotics and follow-up cultures
DuoNebs + nebulized 3% NS
No plans for pacemaker or ischemic evaluation at this time given that family is ready to withdraw care today
Family is ready to withdraw care today. We will transition to comfort care measures. Once he is transitioned to comfort care then Elevator Service Technician/pulmonary service will sign off. Please call back with any questions or concerns.
Assessment
-
Assessment: 78-year-old male with a past medical history of hypertension, ischemic cardiomyopathy, mixed hyperlipidemia, DM type II, CAD s/p coronary stent to RCA, history of colon cancer, and history of melanoma who presented with slurred speech
and left facial droop. Per triage, patient was last seen normal at 1300 on 04/25/2024, however with additional history taking there was unclear timing of symptom onset. Apparently the patient was speaking with a friend at around 11:00 and the
patient was slurring his words and was lethargic at that time. After he was found sitting on the floor with facial drooping and slurring the words at around 2:45 PM, 911 was called and per EMS he was found to be in complete heart block. Initially
in the ER patient was bradycardic to 46, respiratory rate 17, BP 164/78, and saturating 93% on 4 L/min. Initial labs showed leukocytosis of 12.7, Hb 14.1, platelets 139, serum bicarbonate level 20, magnesium 1.6, troponin 0.018, TSH 3.96. Neurology
consulted and rectal ASA given - pt not deemed a TNK candidate as it was unclear when he was last known normal. CT head showed no acute intracranial hemorrhage. CTA head/neck showed complete occlusion of the right vertebral artery with severe
stenoses of the bilateral proximal internal carotid arteries. Of note there was retrograde blood flow into the right intracranial vertebral artery. Cardiology consulted and he was brought to the Bulk Plant Supervisor for a transvenous pacemaker which was
placed via the right common femoral vein. After the Bulk Plant Supervisor patient became tachypneic, restless with increased work of breathing and hypertensive. He was intubated and transferred to the ICU for further care. Elevator Service Technician services consulted for
additional management/recommendations.
Impression:
#Complete heart block s/p transvenous pacemaker
#Shock: Likely multifactorial from cardiogenic + septic - shock state now resolved as of this AM
#Acute decompensated heart failure � likely developed as a sequelae of bradyarrhythmia
#Large ischemic stroke in the right middle cerebral artery territory seen on CT head from 04/27/2024
#Suspected pneumonia (?Aspiration)
#Leukocytosis
#Facial droop with word slurring concerning for CVA, now with RUE twitching and right gaze preference
#Bilateral ICA stenosis with complete right vertebral artery occlusion (with retrograde flow into the right intracranial vertebral artery)
#Persistent fevers - suspect DRAW HAND-related from suspected CVA
#Acute respiratory failure with hypoxia + hypercapnia now on mechanical ventilation
#MARYA with hyperkalemia
#Metabolic acidosis - resolved
#Hyperglycemia
#Hyperbilirubinemia
#Abnormal urinalysis with +1 leukocyte esterase and 30�40 urine WBC concerning for UTI
#Severe cervical spine osteoarthritis with disc�osteophyte complex at C4-C7 with cord compression and central canal stenosis
#Right groin bulging due to suspected hernia
Plan:
- Continue with mechanical ventilation with daily SAT/SBT if clinically indicated --> family is interesting in withdrawing care today
- In the interim, titrate PEEP + FiO2 to maintain SpO2 >90-94%
- Keep goal pH 7.35-7.45
- Maintain plateau pressure <30
- Maintain goal RASS between 0 to -2
- Monitor ETT secretions, with deep suctioning as needed
- Chest PT as needed with nebulized 3% TID with DuoNebs TID
- prn nebulized bronchodilators - not currently bronchospastic
- Continue with TVP --> on AM of 04/26, rate was set at 80bpm at 20mA --> interventional cardiology with Dr. Simon later adjusted settings to 40 bpm and 10 mA, and the pt was able to maintain a heart rate >55 bpm intrinsically --> yesterday AM the
HR is set back at 80 b/min at 10mA, and he is being paced almost 100% of the time
- Lyme PCR testing is negative
- TSH was WNL at 3.96 on 04/25/2024
- Goal HR>50-60
- Replete electrolytes with K>4, Mg>2
- Cardiology on board and recs appreciated
- Echo performed on 04/26/2024 shows reduced LVEF at 40% with mild concentric LVH with multiple wall motion abnormalities --> defer ischemic eval to cardiology --> now the patient has a right sided ischemic stroke, family is withdrawing care. No
ischemic evaluation to be performed at this time
- Continue broad-spectrum antibiotic, currently on Unasyn
- Follow-up blood cultures collected 04/25/2024 + urine cultures collected 04/26 --> NGTD on cultures
- Check sputum Cx (collected yesterday); urine antigens for legionella and Strep PNA both negative
- No recent hospitalizations and no history of MDRO or MRSA
- If patient has worsening hemodynamics then consider broadening antibiotics further to Vanco + cefepime vs Zosyn, however now that we are going to withdraw care today this is a moot point
- Treat fevers with tylenol, keeping <4g per 24hrs
- Now off vasopressors as of yesterday AM
- Maintain MAP>65
- Continue PPI for stress ulcer ppx
- Trend serum HCO3 level; s/p bicarb gtt
- Neurology on board and recommendations appreciated
- Continue ASA, and can change from rectal aspirin to ASA through NGT
- Continue high intensity statin via NGT
- Continue with Keppra
-CT head checked on 04/27/2024 showed a large area of evolving nonhemorrhagic infarction in the right middle cerebral artery territory --> EEG today showed no epileptiform features with mild bihemispheric cortical dysfunction --> family is now
withdrawing care today
- Of note, EEG performed on 04/26 showed no epileptiform features with minimal electrographic demonstration of cortical activity
- Maintain euglycemia with goal BG 140-180; continue ISS q6hr
- Trend H/H and transfuse if needed to keep Hb>7g/dL; keep plt>50k given TVP in place
- DVT ppx: HSQ
IV Access: PIV and right femoral cordis
Family is ready to withdraw care today. We will transition to comfort care measures. Once he is transitioned to comfort care then jumpbasting machine operator/pulmonary service will sign off. Please call back with any questions or concerns.
Critical care statement: A total of 41 minutes of critical care time was provided for this patient today. This includes management of unstable vital signs, evaluation of the patient at bedside, reviewing the patient's pertinent medical records
including radiographs, microbiology, laboratory evaluations, and discussion with primary team, consultants, pharmacy, nutrition, physical therapy, case management, charge nurse, critical care nursing, and respiratory therapy.
Subjective Dataa
Subjective Data
Date of Service:
Date of Service: April 28, 2024
Chief Complaint: Elevator Service Technician Follow Up
Subjective:
Pt seen and evaluated this AM. Remains intubated on AC/CMV 400/18/40%/5 with PIP: 22 cmH2O, VTe 424 mL and breathing at 18 breaths/min. HR 80, BP 118/74, SpO2 98%. He remains paced at 80bpm. Remains febrile. Opens eyes intermittently and
following commands, however he was not following commands for me. Got 80mg IV laix today, Cr is continuing to worsen.
Review of Systems
General: Unobtainable - Pat Unresp
Objective Data
Data Reviewed
Vital Signs / I&O / Oxygen:
Vital Signs
Temp Pulse Resp BP Pulse Ox
100.8 F H 80 18 116/62 100
04/28/24 11:22 04/28/24 13:47 04/28/24 13:47 04/28/24 13:00 04/28/24 13:47
Intake and Output
04/27/24 04/28/24 04/29/24
06:59 06:59 06:59
Intake Total 3080.0 / 3087.5 415.0 / 425.0 190 / 190
Output Total 440 / 450 1335.0 / 1380.0 1140 / 1140
Balance 2640.0 / 2637.5 -920.0 / -955.0 -950 / -950
SaO2 [A/C] 99
SaO2 100
Nasal Cannula flow liters per 4
minute
Physical Exam
General: Respiratory Distress (negative), Chills (negative) and Sweats (negative)
HEENT: Normocephalic, Anicteric and Other (Occasional rightward eye gaze preference)
Cardiovascular: S1-S2 and Peripheral Edema (negative)
Respiratory: Wheeze (negative), Crackles (Bilaterally), Rhonchi (Bilaterally), Non-Labored Respirations and ET Tube (Mechanical breath sounds heard bilaterally)
GI: Soft, Non Distended, Non Tender and Normal Bowel Sounds
Neurology: Tremors (negative), Unresponsive and Other (Pupils 2 mm bilaterally and sluggish with intact corneal reflexes; not following commands)
Skin: Warm, Dry, Cyanosis (negative) and Jaundice (negative)
Labs/Micro/Reports
Lab Data
04/28/24 03:52
04/28/24 03:52
Microbiology
04/27/24 03:22 Endotracheal Respiratory Culture - Preliminary
Usual Respiratory Neelam
04/27/24 03:22 Endotracheal Gram Stain - Preliminary
04/25/24 21:41 Blood/Venous Blood Culture - Preliminary
No Growth in 48 hours- Final report to follow
04/25/24 21:41 Blood/Venous Blood Culture - Preliminary
No Growth in 48 hours- Final report to follow
04/26/24 08:34 Urine Urine Culture - Final
NO GROWTH
04/27/24 01:45 Urine Legionella Urinary Antigen - Final
Negative for Legionella pneumophila Serogroup 1 antigen.
A negative result does not rule out the possiblity of
Legionella infection due to other serogroups or species of
Legionella. Clinical correlation is recommended.
04/27/24 01:45 Urine Streptococcus pneumoniae Antigen (M - Final
Negative for Streptococcus pneumoniae antigen.
A negative result does not exclude infection with
Streptococcus pneumoniae. Clinical correlation is
recommended.
04/25/24 21:27 Nasal Swab Influenza Types A & B (JAYLA) - Final
Negative for Influenza A & B, NAAT
Negative results must be combined with clinical observations
and patient history.
Nucleic Acid Amplification test (NAAT)performed on the
[employer] platform.
--- NOTE | 2024-04-28 08:22 | W.PN.NEPH.PH ---
Today's Communication / Plan
-
follow BMP
Assessment/Plan
-
Impression:
MARYA
Complete heart block s/p transvenous pacemaker
Shock: Likely multifactorial from cardiogenic + septic
Acute decompensated heart failure � likely developed as a sequelae of bradyarrhythmia
Suspected pneumonia (?Aspiration)
Leukocytosis
Facial droop with word slurring concerning for TIA versus CVA
Bilateral ICA stenosis with complete right vertebral artery occlusion (with retrograde flow into the right intracranial vertebral artery)
Recurrent fevers - due to sepsis +/- neurogenic
Acute respiratory failure with hypoxia + hypercapnia now on mechanical ventilation
Hyperbilirubinemia
Severe cervical spine osteoarthritis with disc�osteophyte complex at C4-C7 with cord compression and central canal stenosis
Right groin bulging due to suspected hernia
Plan
Cr appears to be plateauing. He will likely recover renal function
follow UOP, improving
lasix prn ok, dose today
greatest issue is mental status. for EEG today
abx per primary team, but does not appear to have active infection
critical care time 31 minutes
-
-
Date of Service: April 28, 2024
CC / HPI / ROS
-
Chief Complaint:
MARYA
History of Present Illness:
MARYA/Cr higher at 3.6
off pressors, BP stable
paced with temporary pacer at 80 bpm
on Vent, stable O2
critically ill in ICU
Review of Systems:
intubated
not sedated
febrile
nonoliguric
Labs
-
Labs:
WBC 6.8 10^3/uL (4.8-10.8) 04/28/24 03:52
RBC 3.71 10^6/uL (4.70-6.10) L 04/28/24 03:52
Hgb 11.9 g/dL (13.0-18.0) L 04/28/24 03:52
Hct 35.7 % (39.0-52.0) L 04/28/24 03:52
Plt Count 112 10^3/uL (130-400) L 04/28/24 03:52
Sodium 139 mmol/L (135-145) 04/28/24 03:52
Potassium 3.7 mmol/L (3.5-5.1) 04/28/24 03:52
Chloride 99 mmol/L (98-107) 04/28/24 03:52
Carbon Dioxide 30 mmol/L (22-30) 04/28/24 03:52
BUN 54 mg/dl (9-20) H 04/28/24 03:52
Creatinine 3.6 mg/dL (0.7-1.3) H 04/28/24 03:52
eGFR 16.36 04/28/24 03:52
Glucose 129 mg/dl (70-99) H 04/28/24 03:52
Calcium 8.6 mg/dl (8.4-10.2) 04/28/24 03:52
Phosphorus 5.6 mg/dl (2.5-4.5) H 04/26/24 13:15
Xvg-N-Qpjmncixfrn Pept 6020 pg/ml 04/25/24 21:03
Albumin 2.9 g/dl (3.5-5.0) L 04/28/24 03:52
Physical Exam
-
Vital Signs:
Vital Signs
Temp Pulse Resp BP Pulse Ox
102 F H 80 18 137/75 97
04/28/24 00:00 04/28/24 07:53 04/28/24 07:53 04/28/24 04:45 04/28/24 07:53
Cardiovascular:: Regular rate and rhythm
Respiratory:: Bilateral: Coarse
Lung Excursion:: Normal
Abdomen:: Nontender and Soft
Bowel Sounds:: Normal
Extremity Edema:: None: Bilateral:
--- NOTE | 2024-04-28 08:30 | PTCARENOTE ---
Assumed care of pt at 0715 following shift report. Pt remains intubated on vent at ordered settings. KVO IVF via Rt femoral cordis w/ transvenous pacer in use at ordered settings Rate:80, ma:10, Sensitivity:5. Brace in use to RLE to protect Rt
femoral pacer. Rt nare NGT present and confirmed at 60 cm to LIWS w/ moyer brown drainage. Goel patent and draining clear yellow urine. Physical assessment completed as documented. Pt noted to open eyes to name and look at staff. Squeezed Rt hand
to command. No response when asked to squeeze left hand. Inconsistently wiggling toes bilaterally to command. Restless at times- moving bilateral LE in what appears to be a purposeful manner. Does not attempt to communicate. Pt remains restrained to
protect lines/tubes. Comfort care/hygiene provided. EEG completed. Pt's daughter visiting in room- updated on pt's present condition, questions answered and emotional support provided. Pt's daughter stating that she is aware of dire prognosis and
that she and pt's son would like to terminally extubate and make pt comfort care later today after extended family visits.
[2024-04-28] MEDS: LASIX 80 MG IV (08:51)
[2024-04-28] MEDS: NSS (PRESERVATIVE FREE) 10 ML IV (08:52)
[2024-04-28] MEDS: KEPPRA 500 MG IV (08:52)
[2024-04-28] MEDS: PROTONIX IV 40 MG IV (08:53)
[2024-04-28] MEDS: HEPARIN 5000 UNITS SC (08:53)
[2024-04-28] MEDS: LOW STRENGTH ASPIRIN 81 MG TUBE (08:57)
--- NOTE | 2024-04-28 09:41 | EEG.RPT ---
Electroencephalogram Report
Recording
Date of EE04/28/24
Type of EEG: Routine
Length of EEG recordin minutes
Done with Video Recording: Yes
Patient Status: Inpatient
Recording Conditions: Drowsy and Asleep
Hyperventilation Performed: No
Photic Stimulation Performed: Yes
Report
LESS THAN 1 HOUR EEG REPORT
LESS THAN 1 HOUR EEG INTERPRETATION:
Mildly abnormal study for age based on generalized slowing demonstrated bihemispherically equally
CLINICAL CORRELATION:
Although normative values not been established for a person of this advanced age the patient�s symmetry of the background suggests that this study was suggestive of mild bihemispheric cortical dysfunction. No epileptiform features were demonstrated.
If concerns remain regarding epilepsy, prolonged monitoring may be of assistance.
Clinical correlation is advised.
METHODS:
A 21-channel digital electroencephalogram (EEG) was performed in the ICU. The 10/20 international system of electrode placement was used with ECG and lateral/vertical eye movements recorded. The [employer] Android POS quantitative system was utilized.
IMPRESSION(S):
Quality of study
Good
Background
Expected amplitude
Anterior-posterior voltage gradient differentiation: Fair
Theta frequency maximal background demonstrated
Sleep
Drowsiness present
Hyperventilation
Not performed
Photic Stimulation
Failed to activate the record
ECG
Normal rhythm
Abnormal Activity
None
--- NOTE | 2024-04-28 10:26 | W.PN.NEURO.1 ---
Today's Communication / Plan
-
with the stroke, and in light of the multiple other serious problems, multi organ failure, based on their knowledge of his wishes, still planning on withdrawing care after everybody comes to say goodbye
Neuro Assessment/Plan
Assessment
CTA head/neck right vertebral origin occluded; left vertebral patent; bilateral proximal internal carotid ~70% stenosis, severe intracranial ICA stenosis bilaterally
EEG 04/26 showing low amplitude beta activity, which could be the result of anesthetics.
EEG 04/28 showing generalized slowing
78 year old man, right MCA territory stroke, in the setting of septic/cardiac shock, bilateral carotid stenosis 70%. suspicion is for watershed infarcts bilaterally.
The prognosis for neuro recovery is still Left sided weakness, neglect, I don't think he will walk again given age and comorbidities. He could awake in a wheelchair, talk, probably eat
Plan
with the stroke, and in light of the multiple other serious problems, multi organ failure, based on their knowledge of his wishes, still planning on withdrawing care after everybody comes to say goodbye
Subjective/Objective
Subjective Data
Date of Service: April 28, 2024
yesterday afternoon I spoke with the family and reviewed with them head CT imaging showing right MCA stroke, involving the posterior part of the territory. expecting left sided neglect, left sided weakness. with his advanced age and comorbidities, I
don't think he will walk again. Expected neuro prognosis would be awake, in a wheelchair, able to talk, probably eat. the family decided to gather everybody to say goodbye, and then withdraw care.
this morning starting to wake up, moving right more than left side, squeezed daughter's hand
Objective Data
Vital Signs
Temp Pulse Resp BP Pulse Ox
38.8 C H 80 18 125/64 99
04/28/24 00:00 04/28/24 08:51 04/28/24 07:53 04/28/24 08:51 04/28/24 08:00
Lab Results
04/28/24 03:52
04/28/24 03:52
PT 16.0 Sec (11.4-14.6) H 04/25/24 15:43
INR 1.25 04/25/24 15:43
APTT 43.7 Sec (23.4-35.0) H 04/25/24 15:43
Sodium 139 mmol/L (135-145) 04/28/24 03:52
Potassium 3.7 mmol/L (3.5-5.1) 04/28/24 03:52
BUN 54 mg/dl (9-20) H 04/28/24 03:52
Glucose 129 mg/dl (70-99) H 04/28/24 03:52
Calcium 8.6 mg/dl (8.4-10.2) 04/28/24 03:52
Phosphorus 5.6 mg/dl (2.5-4.5) H 04/26/24 13:15
Bks-J-Bqmkvdkkvfd Pept 6020 pg/ml 04/25/24 21:03
LDL Cholesterol, Calc 31 mg/dl 04/26/24 04:17
Patient Allergies
shellfish derived Allergy (Verified 04/25/24 15:20)
Itching
shrimp Allergy (Verified 04/25/24 15:20)
Itching
[2024-04-28] MEDS: UNASYN IV (10:55)
--- NOTE | 2024-04-28 10:59 | W.PN.HOSP.TC ---
Today's Communication/Plan
-
family planning withdrawal of care today
Assessment / Plan
Assessment / Plan
Assessment:
Large area of likely evolving nonhemorrhagic infarction in the right middle cerebral artery territory
Severe cerebrovascular disease, greater than 70% bilateral internal carotid stenosis, occlusion of right vertebral, patent left vertebral
- confirmed on CT
- EEG for neuro-prognostication per Neurology
Complete heart block
- s/p temp pacer
- management per Cardiology
VDRF
- suspected related to acute aspiration pneumonia vs CHF
- vent/sedation per ICU team
Shock, likely mixed state (cardiogenic, septic)
- currently off pressors
- continue Unasyn day 3 for concern of aspiration pneumonia
MARYA
Acute hyperkalemia
- suspected related to shock state (pre-renal mediated from CHB)
- continue Goel, monitor UOP
- s/p Bicarbonate IVF
- s/p Lokelma for hyperK+
- IV Lasix per Nephrology
- hold nephrotoxins
Acute HFrEF
- Echo: 1. Mild cLVH with multiple LAD distribution wall motion abnormalities as described below, EF 40%. A calcified laminar apical thrombus is not excluded. Thickened mitral leaflets, mitral annular calcification, mild mitral
regurgitation and normal left atrium. Aortic sclerosis with without apparent stenosis or regurgitation. Normal right heart with pacing wire identified, tricuspid valve gradient is 12 mmHg. Pleural effusion is present. The IVC does not collapse.
- IV Lasix per Nephrology
Encephalopathy, likely related to critical illness, but cannot rule out CVA
- could be related to low flow state with CHB and bilateral carotid stenosis
- on Keppra per Neurology
- Neuro planning EEG tomorrow and possible CT head
- await MRI brain when feasible
- follow infectious workup
Non-ischemic myocardial injury
- trend trops to peak, currently 1.94 - trend to peak
- Echo: as above
essential hypertension
- hold BP meds
hyperlipidemia
CAD, hx of TN
- continue rectal ASA
- resume Statin when enteral access available
type 2 DM
- continue SSI
- hold PO meds
- A1c: 6.0%
Colon cancer s/p resection 12/2021
L groin hernia on US
DVT ppx: SC Heparin
Code: DNR/DNI
Family planning to withdraw care today
Anticipated Discharge: Within 24 hours
Subjective/Interval History
-
Date of Service: April 28, 2024
slightly more responsive
remains in renal failure and CHB with temp pacer, large CVA confirmed on CT yesterday
family planning for withdrawal
Objective Data
-
Labs:
Laboratory Results
04/28/24
03:52
WBC 6.8
Hgb 11.9 L
Hct 35.7 L
Plt Count 112 L
Sodium 139
Potassium 3.7
Chloride 99
Carbon Dioxide 30
BUN 54 H
Creatinine 3.6 H
Glucose 129 H
Calcium 8.6
Total Bilirubin 1.5 H
AST 24
ALT 17
Alkaline Phosphatase 82
Vital Signs:
Vital Signs
Temp Pulse Resp BP Pulse Ox
102 F H 80 18 125/64 99
04/28/24 00:00 04/28/24 08:51 04/28/24 07:53 04/28/24 08:51 04/28/24 08:00
I&O
04/27/24 04/28/24 04/29/24
06:59 06:59 06:59
Intake Total 3080.0 / 3087.5 415.0 / 425.0
Output Total 440 / 450 1335.0 / 1380.0 90 / 90
Balance 2640.0 / 2637.5 -920.0 / -955.0 -70 / -70
Physical Exam
-
General: Intubated
HEENT: Normocephalic and Atraumatic
Respiratory: Decreased Breath Sounds; Negative Wheezes
Cardiac: Regular Rhythm and S1/S2
GI: Soft
Neuro: Awake
Psych: Calm
Data Reviewed
-
Critical Care Time (in minutes): 41
--- NOTE | 2024-04-28 12:00 | PTCARENOTE ---
All systems reassessed and w/o change from previous findings. Multiple families visiting at bedside. Dtr declined offer to have educational assistant teacher visit. Emotional support provided. Frequent comfort care provided to pt. Safe environment maintained.
--- NOTE | 2024-04-28 12:27 | CM ---
CM following re: discharge planning.
Reviewed pt's chart, met with pt. Pt's daughter Mariel, son and 2 family members at bedside.
Per MD family planning to withdraw care today. Emotional support offered and provided to pt's family. CM assisted pt's family with notarizing affidavit of medical certification of pt's incapacitation. Pt's daughter stated she is awaiting for family
members to come to say goodbye to the pt and decision will be made to withdraw care.
Pt's daughter stated that pt's wishes were for cremation. Per daughter request, information regarding [place] and cremation services provided.
D/C plan: Withdraw of care when family decides.
CM is available for emotional support.
[2024-04-28] MEDS: KCL ELIXIR 20 MEQ TUBE (12:30)
--- NOTE | 2024-04-28 12:34 | W.PN.INTV ---
Today's Communication / Plan
Recommendations
Family is ready to withdraw care today. We will transition to comfort care measures.
Continued mechanical ventilation until family decides to withdraw care and start comfort measures.
Continue Keppra.
Continue antibiotics and follow-up cultures.
No plans for pacemaker or ischemic evaluation at this time given that family is ready to withdraw care today.
Assessment
-
78M with a past medical history of HTN, HLD, CAD, DMII, KS s/p stent in 2015, and colon CA s/p colonic resection in 2021 who presented to the hospital with altered mental status of unknown duration with negative brain imaging and found to be in
complete heart block is status post temporary transvenous pacemaker placement. 4 hours after stent procedure completed, patient became tachypneic with increased work of breathing, accessory muscle use, and required intubation. Patient was admitted
to the ICU 3 nights ago after intubation for vent management and pressor support.
Impression:
Acute Encephalopathy of Unknown Etiology - possible CVA, possible severe hypoperfusion
- CT Head w/o contrast negative for bleed/infarct (on admission)
- Repeat CT Head (04/27): Large area of likely evolving nonhemorrhagic infarction in the right middle cerebral artery territory
- EEG: Severely abnormal EEG for age due to absence of a well defined cortical rhythm and minimal reactivity.
- Repeat EEG (03/28/24): Mildly abnormal study for age based on generalized slowing demonstrated bihemispherically equally. Although normative values not been established for a person of this advanced age the patient�s symmetry of the background
suggests that this study was suggestive of mild bihemispheric cortical dysfunction. No epileptiform features were demonstrated.
- CTA Head/Neck revealed complete occlusion of the R vertebral artery at its origin and >70% stenosis of the bilateral internal carotid arteries. Altered mental status could be explained by acute hypoperfusion secondary to complete heart block in
the setting of chronic hypoperfusion secondary to vasoocclusive disease.
- Given loading dose of Keppra and continued on 500 mg q12h.
Neurogenic Fever
- Febrile since 04/25; continues to be febrile with TMax 103 despite normalization of WBC count and negative procal/no source of infection, thus this is likely neurogenic fever in the setting of ischemic brain injury
- Procal negative.
- Per patient's daughter, patient has had diarrheal illness x approximately 4 days prior to arrival.
- Pulmonary infiltrates not readily apparent on CXR, but aspiration is a possibility, given the patient's acute respiratory decompensation last night.
- WBC 12.9 on arrival, max of 19.6, now normalized
- S/p Unasyn 3g IV x 3 days
Shock - septic vs. cardiogenic (resolved)
- No longer on pressors.
- Improvement in lactic acid from admission.
Complete Heart Block s/p TTVP placement 04/25
- TTVP oroginally set at 80 bpm, 20 amps; now aat 80 bmp and 10 amps.
- Once the patient is transitioned to comfort measures, consider removal of TVP
Acute Heart Failure
- CXR shows bilateral pulmonary interstitial opacities possibly consistent with pulmonary edema
- BNP 6020.
- Likely secondary to heart block
- Last ECHO in 2021: EF 55%, improvement from prior (45%). Patient with history of ischemic cardiomyopathy.
- Troponin neg (0.0180) on admission, prior to TTVP placement.
Acute Kidney Injury
- Creatinine continues to worsen, 3.6 this AM
- Potentially cardiorenal in the setting of cardiogenic shock vs prerenal in the setting of septic shock
Other Chronic Conditions Present on Arrival
CAD status post PCI 2015
Ischemic cardiomyopathy with recovered EF
Hypertension
Dyslipidemia
Diabetes mellitus type 2
Colon cancer s/p resection 12/2021
Plan:
Neuro:
RASS goal 0 to -1.
Sedation has been off since yesterday.
Follow up Neurology recommendations.
Continue Keppra 500 mg IV BID
Acetaminophen 650 mg oral v rectal for pain.
Family is interesting in withdrawing care today
Cardiovascular:
MAP goal > 65. Currently off of pressors.
Vasoocclusive disease apparent on head/neck imaging, will need vascular consult once stable.
Continue TVP pacing; once patient family ready for comfort measures, remove TVP.
Acute HF ideally treated with Furosemide, but continue to hold given pressor support and MARYA.
ASA 300 mg rectally for antiplatelet therapy
Respiratory
Continue on Vent; - daily SAT/SBT when able.
Titrate PEEP + FiO2 to maintain SpO2 >90-94%
Family is interesting in withdrawing care today
Pulmonary edema likely secondary to acute heart failure, see above.
Tolerating vent
Chest PT as needed with nebulized 3% TID with DuoNebs TID
Prn nebulized bronchodilators - not currently bronchospastic
GI
NPO while ventilated, currently has NG tube.
Ulcer ppx with Protonix 40 mg IV
Bowel regimen PRN
Renal
Continue to trend Cr.
See Cardiovascular as MARYA is likely secondary to cardiorenal syndrome.
Bicarb at 125 mL/hr
ID
Continue Unasyn 3g IV q6h
Follow up blood cx, urine cx.
Follow fever curve, WBCs, trend lactate
Heme/Onc
DVT PPx: SCD + Heparin 5,000 U SQ q8h
Endocrine
Insulin Sliding Scale
Subjective Dataa
Subjective Data
Date of Service:
Date of Service: April 28, 2024
Patient seen and examined. CT Scan last night found to have a large area of evolving nonhemorrhagic infarction in the distribution of the right middle cerebral artery. Information was presented to the patient's family by the Neurologist, and the
decision was made to make the patient DNR and have the patient's family come to visit before ultimately withdrawing care some time today.
Chief Complaint: Family Medicine Resident Follow Up
Review of Systems
General: Fever and Unobtainable - Pat Unresp
Objective Data
Data Reviewed
Vital Signs / I&O / Oxygen:
Vital Signs
Temp Pulse Resp BP Pulse Ox
100.8 F H 80 18 125/64 99
04/28/24 11:22 04/28/24 08:51 04/28/24 07:53 04/28/24 08:51 04/28/24 08:30
Intake and Output
04/27/24 04/28/24 04/29/24
06:59 06:59 06:59
Intake Total 3080.0 / 3087.5 415.0 / 425.0 180 / 180
Output Total 440 / 450 1335.0 / 1380.0
Balance 2640.0 / 2637.5 -920.0 / -955.0
SaO2 [A/C] 99
SaO2 99
Nasal Cannula flow liters per 4
minute
Physical Exam
General: Respiratory Distress (negative), Chills (negative) and Sweats (negative)
HEENT: Normocephalic, Anicteric and Other (ET tube in place)
Cardiovascular: S1-S2 and Peripheral Edema (n)
Respiratory: Wheeze (n), Crackles (Bilaterally), Non-Labored Respirations and ET Tube (Mechanical breath sounds heard bilaterally)
GI: Soft, Non Distended, Non Tender and Normal Bowel Sounds
Neurology: Other (Somnolent and somewhat unresponsive, thought minimal improvement from yesterday, as patient will occasionally open his eyes on command, wiggle his bilateral toes, and squeeze right hand when provider hand placed in it)
Skin: Warm, Dry and Cyanosis (n)
Labs/Micro/Reports
Lab Data
04/28/24 03:52
04/28/24 03:52
Microbiology
04/27/24 03:22 Endotracheal Respiratory Culture - Preliminary
Usual Respiratory Neelam
04/27/24 03:22 Endotracheal Gram Stain - Preliminary
04/25/24 21:41 Blood/Venous Blood Culture - Preliminary
No Growth in 48 hours- Final report to follow
04/25/24 21:41 Blood/Venous Blood Culture - Preliminary
No Growth in 48 hours- Final report to follow
04/26/24 08:34 Urine Urine Culture - Final
NO GROWTH
04/27/24 01:45 Urine Legionella Urinary Antigen - Final
Negative for Legionella pneumophila Serogroup 1 antigen.
A negative result does not rule out the possiblity of
Legionella infection due to other serogroups or species of
Legionella. Clinical correlation is recommended.
04/27/24 01:45 Urine Streptococcus pneumoniae Antigen (M - Final
Negative for Streptococcus pneumoniae antigen.
A negative result does not exclude infection with
Streptococcus pneumoniae. Clinical correlation is
recommended.
04/25/24 21:27 Nasal Swab Influenza Types A & B (JAYLA) - Final
Negative for Influenza A & B, NAAT
Negative results must be combined with clinical observations
and patient history.
Nucleic Acid Amplification test (NAAT)performed on the
[employer] platform.
[2024-04-28 12:59] LABS: Glucose - Point of Care 127 mg/dl (70-99)
[2024-04-28] MEDS: ATIVAN 0.5 MG IV (16:08)
[2024-04-28] MEDS: DILAUDID 1 MG IV (16:08)
[2024-04-28] MEDS: NSS (PRESERVATIVE FREE) 0.25 ML IV (16:09)
--- NOTE | 2024-04-28 16:18 | RESPNOTE ---
patient extubated for comfort care per MD order. family at bedside.
--- NOTE | 2024-04-28 16:30 | PTCARENOTE ---
Dr Lane in room to talk w/ pt's dtr and son. Order to terminally extubate to comfort care received. Resp Therapy notified. Pt premedicated w/ Ativan and Dilaudid as ordered. Bilateral soft wrist restraints removed. NGT removed.Pacer rate
decreased to [address] Mosher. Comfort care/Oral care provided. Pt extubated at 1615 by Resp Therapy. RA POx 79-96%. Periods of apnea noted. No distress noted. Family at bedside. Emotional support provided.
[2024-04-28] MEDS: DILAUDID 0.5 MG IV ×3 (16:44→22:06)
[2024-04-28] MEDS: ATIVAN 1 MG IV ×2 (16:45→19:40)
[2024-04-28] MEDS: NSS (PRESERVATIVE FREE) 0.5 ML IV ×2 (16:46→19:41)
[2024-04-28] MEDS: HEPARIN SC (17:55)
--- NOTE | 2024-04-28 20:00 | PTCARENOTE ---
rec`d pt at 1900. assessment as documented. transvenous pacemaker turned off at change of shift per MD orders. family at bedside. prn meds given for comfort. safe environment maintained.
--- NOTE | 2024-04-28 21:15 | PTCARENOTE ---
report given to 2 [place] nurse.
[2024-04-29] MEDS: NSS (PRESERVATIVE FREE) 0.5 ML IV ×5 (00:50→22:55)
[2024-04-29] MEDS: DILAUDID 0.5 MG IV ×4 (00:51→06:39)
[2024-04-29] MEDS: ATIVAN 1 MG IV ×5 (00:51→22:55)
[2024-04-29 07:45] VITALS: BP 121/57
[2024-04-29] MEDS: DILAUDID 50 IV (08:01)
[2024-04-29] MEDS: ROBINUL 0.2 MG IV ×3 (08:23→20:41)
--- NOTE | 2024-04-29 09:07 | CM ---
Reviewed the chart notes. CM continues to be available to patient/family.
Plan: Comfort Care
--- NOTE | 2024-04-29 09:38 | W.PN.HOSP.TC ---
Today's Communication/Plan
-
maximize comfort measures
Assessment / Plan
Assessment / Plan
Assessment:
Large area of likely evolving nonhemorrhagic infarction in the right middle cerebral artery territory
Severe cerebrovascular disease, greater than 70% bilateral internal carotid stenosis, occlusion of right vertebral, patent left vertebral
- confirmed on CT
- EEG for neuro-prognostication per Neurology
Complete heart block
- s/p temp pacer
- management per Cardiology
VDRF
- suspected related to acute aspiration pneumonia vs CHF
- vent/sedation per ICU team
Shock, likely mixed state (cardiogenic, septic)
- currently off pressors
- continue Unasyn day 4 for concern of aspiration pneumonia
MARYA
Acute hyperkalemia
- suspected related to shock state (pre-renal mediated from CHB)
- continue Goel, monitor UOP
- s/p Bicarbonate IVF
- s/p Lokelma for hyperK+
- IV Lasix per Nephrology
- hold nephrotoxins
Acute HFrEF
- Echo: 1. Mild cLVH with multiple LAD distribution wall motion abnormalities as described below, EF 40%. A calcified laminar apical thrombus is not excluded. Thickened mitral leaflets, mitral annular calcification, mild mitral
regurgitation and normal left atrium. Aortic sclerosis with without apparent stenosis or regurgitation. Normal right heart with pacing wire identified, tricuspid valve gradient is 12 mmHg. Pleural effusion is present. The IVC does not collapse.
- IV Lasix per Nephrology
Encephalopathy, likely related to critical illness, but cannot rule out CVA
- could be related to low flow state with CHB and bilateral carotid stenosis
- on Keppra per Neurology
- Neuro planning EEG tomorrow and possible CT head
- await MRI brain when feasible
- follow infectious workup
Non-ischemic myocardial injury
- trend trops to peak, currently 1.94 - trend to peak
- Echo: as above
essential hypertension
- hold BP meds
hyperlipidemia
CAD, hx of [place]
- continue rectal ASA
- resume Statin when enteral access available
type 2 DM
- continue SSI
- hold PO meds
- A1c: 6.0%
Colon cancer s/p resection 12/2021
L groin hernia on US
DVT ppx: SC Heparin
Code: DNR/DNI
Dispo: on comfort measures
Anticipated Discharge: Within 24 hours
Subjective/Interval History
-
Date of Service: April 29, 2024
terminally extubated yesterday, moved to for comfort focused care
family at bedside, reporting increase secretions, 20-30 pauses of respirations
Objective Data
-
Labs:
Laboratory Results
04/29/24
06:00
WBC Cancelled
Hgb Cancelled
Hct Cancelled
Plt Count Cancelled
Sodium Cancelled
Potassium Cancelled
Chloride Cancelled
Carbon Dioxide Cancelled
BUN Cancelled
Creatinine Cancelled
Glucose Cancelled
Calcium Cancelled
Vital Signs:
Vital Signs
Temp Pulse Resp BP Pulse Ox
99.0 F 47 18 121/57 91
04/29/24 07:45 04/29/24 07:45 04/29/24 07:45 04/29/24 07:45 04/29/24 07:45
I&O
04/28/24 04/29/24 04/30/24
06:59 06:59 06:59
Intake Total 415.0 / 425.0 210 / 210
Output Total 1335.0 / 1380.0 2290 / 2290
Balance -920.0 / -955.0 -2079 /
Physical Exam
-
General: Respiratory Distress (mild)
HEENT: Normocephalic and Atraumatic
Respiratory: Decreased Breath Sounds and Other (congested breath sounds)
Cardiac: Regular Rhythm and S1/S2
GI: Soft
Neuro: Sedated
Data Reviewed
-
Total Time Spent with Patient (in minutes): 42
Labs: Labs Reviewed by me
[2024-04-29] MEDS: DILAUDID 1 MG IV ×4 (11:05→22:55)
[2024-04-29] MEDS: TRANSDERM-SCOP 1 PATCH TRANSDERM (15:00)
[2024-04-29 19:51] VITALS: BP 119/44
[2024-04-29] MEDS: TYLENOL/FEVERALL 650 MG RECTAL (21:15)
--- NOTE | 2024-04-30 00:48 | W.PN.DEATH ---
Pronouncement of
-
Called to see patient to pronounce.
No spontaneous heart tones or respirations noted.
Patient not responsive to verbal stimuli.
Patient is pronounced .
Time of : 00:19
Date of : 04/30/24
Cause of : Non-hemorrhagic infarct, complete heart block
Family Notified: Yes (Daughter at bedside, family notified)
== END 2024-04-30 00:19 | disposition expired | DRG 40 ==
LOC: 2 NORTH 17:23
PROVIDERS: Internal Medicine Cardiovascular Disease; Internal Medicine Interventional Cardiology; Nurse Practitioner Family; Nurse Practitioner Primary Care; ADMITTING PHYSICIAN Hospitalist; ATTENDING PHYSICIAN Internal Medicine; CONSULT PHYSICIAN Internal Medicine Critical Care Medicine; CONSULT PHYSICIAN Psychiatry & Neurology Neurology; CONSULT PHYSICIAN Specialist; EMERGENCY PHYSICIAN Emergency Medicine; FAMILY PHYSICIAN Family Medicine; OTHER PHYSICIAN Internal Medicine Cardiovascular Disease
PROC: 02HK3JZ Insertion of Pacemaker Lead into Right Ventricle, Percutaneous Approach (ICD-10-PCS; 2024-04-25)
PROC: 5A1223Z Performance of Cardiac Pacing, Continuous (ICD-10-PCS; 2024-04-25)
PROC: 0BH18EZ Insertion of Endotracheal Airway into Trachea, Via Natural or Artificial Opening Endoscopic (ICD-10-PCS; 2024-04-25)
PROC: 5A1945Z Respiratory Ventilation, 24-96 Consecutive Hours (ICD-10-PCS; 2024-04-25)
DX: I63.511 Cerebral infarction due to unspecified occlusion or stenosis of right middle cerebral artery (principal); A41.9 Sepsis, unspecified organism; Z66 Do not resuscitate; Z51.5 Encounter for palliative care; I50.21 Acute systolic (congestive) heart failure; J96.01 Acute respiratory failure with hypoxia; J69.0 Pneumonitis due to inhalation of food and vomit; R65.21 Severe sepsis with septic shock; J96.02 Acute respiratory failure with hypercapnia; J18.9 Pneumonia, unspecified organism; I5A Non-ischemic myocardial injury (non-traumatic); I44.2 Atrioventricular block, complete; M50.021 Cervical disc disorder at C4-C5 level with myelopathy; Z99.11 Dependence on respirator [ventilator] status; E87.4 Mixed disorder of acid-base balance; N17.9 Acute kidney failure, unspecified; N39.0 Urinary tract infection, site not specified; G93.40 Encephalopathy, unspecified; R47.01 Aphasia; I25.10 Atherosclerotic heart disease of native coronary artery without angina pectoris; I25.5 Ischemic cardiomyopathy; I65.01 Occlusion and stenosis of right vertebral artery; I65.23 Occlusion and stenosis of bilateral carotid arteries; E78.2 Mixed hyperlipidemia; R29.810 Facial weakness; M48.02 Spinal stenosis, cervical region; S00.81XA Abrasion of other part of head, initial encounter; R47.81 Slurred speech; R59.0 Localized enlarged lymph nodes; R57.0 Cardiogenic shock; E87.5 Hyperkalemia; E11.65 Type 2 diabetes mellitus with hyperglycemia; E80.6 Other disorders of bilirubin metabolism; I12.9 Hypertensive chronic kidney disease with stage 1 through stage 4 chronic kidney disease, or unspecified chronic kidney disease; K40.90 Unilateral inguinal hernia, without obstruction or gangrene, not specified as recurrent; E11.22 Type 2 diabetes mellitus with diabetic chronic kidney disease; N18.9 Chronic kidney disease, unspecified; Z95.5 Presence of coronary angioplasty implant and graft; I25.2 Old myocardial infarction; Z85.038 Personal history of other malignant neoplasm of large intestine; Z79.84 Long term (current) use of oral hypoglycemic drugs; Z79.82 Long term (current) use of aspirin; Z79.899 Other long term (current) drug therapy; X58.XXXA Exposure to other specified factors, initial encounter
CPT/HCPCS: 33210; 36600; 70450; 70496; 70498; 71045; 72125; 76882; 80048; 80053; 80061; 81003; 81015; 82077; 82248; 82550; 82570; 82805; 82962; 83036; 83605; 83735; 83880; 84100; 84145; 84300; 84443; 84478; 84484; 85025; 85027; 85610; 85730; 87040; 87070; 87086; 87205; 87449; 87476; 87502; 87811; 87899; 93005; 93306; 94002; 94003; 94640; 95816; 96374; 99152; 99291; J2997; Q9967